=== PATIENT | female | born 1960 | race Caucasian/White ===

== ENCOUNTER 2019-09-07 14:00 | Emergency (ER) | payer OTHER, SELFPAY ==
[2019-09-07 14:14] VITALS: BP 108/54; PULSE 65; RESP 16; TEMP 36.2; O2SAT 100
--- NOTE | 2019-09-07 14:47 | ED.LOWEXIN ---
HPI - Extremity Injury (Lower) General Chief Complaint: Extremity Injury, Lower Stated Complaint: right toe injury Time Seen by Provider: 09/07/19 14:45 Source: patient and RN notes reviewed Mode of arrival: ambulatory Limitations: no limitations History of Present Illness HPI Narrative: 59-year-old female presents with concern for toe injury. Reports she dropped a can of corn on her toe, causing a laceration, pain, swelling. Reports pain, swelling, laceration to the second digit of her right toe. Reports she has been keeping it clean with a dressing on it. MD complaint: other (Toe injury) Injury: Left: foot Related Data Home Medications Medication Instructions Recorded Confirmed adalimumab [Humira(CF) Pen] mg SUBCUT 05/16/19 folic acid 05/16/19 methotrexate sodium 05/16/19 Allergies Allergy/AdvReac Type Severity Reaction Status Date / Time codeine AdvReac Unknown Vomiting Verified 09/07/19 14:04 Review of Systems Review of Systems: Narrative: CONSTITUTIONAL: Denies malaise, chills, sweats, or fever. CARDIOVASCULAR: Denies chest pain, palpitations SKIN: Reports laceration to the dorsal aspect of the second digit of the right foot, not involving nail MUSCULOSKELETAL: Reports toe pain, swelling, bruising secondary to right foot NEUROLOGIC: Denies numbness, weakness, or headache. All systems reviewed & are unremarkable except as noted in HPI and below PMFSH Family History Family History (Updated 10/01/18 @ 07:38 by DOCTOR UNKNOWN) Mother Hypertension Family history of coronary artery disease Grandparent Family history of coronary artery disease Social History Social History Smoking status: Never smoker Alcohol intake: never Gender identity (if verbalized by the patient): Female Comments At time of signature, agree with nursing past medical, surgical, social and family history. There is no relevant family history pertinent to the presenting complaint Exam Narrative: Exam Narrative: GENERAL: Well-appearing, well-nourished, and in no acute distress. HEAD: Normocephalic, atraumatic. EYES: PERRLA, conjunctivae clear NECK: Supple. CHEST: Speaks in full sentences. No respiratory distress. HEART: Regular rate and rhythm. Normal and equal peripheral pulses. EXTREMITIES: Second digit of right foot has normal strength and sensation, normal range of motion. 5/5 strength with digit flexion and extension. Normal sensation with sensitivity to light touch and pain. No skin tenting, no devitalized tissue or atrophy, no trophic changes, no obvious deformity, alignment normal, no point tenderness, nearby joints and structures intact. Distal pulses palpable and equal bilaterally, skin warm, dry, pink. Capillary refill less than 3 seconds. Digit has mild ecchymosis, erythema, edema, mild induration. SKIN: Warm, dry, no rash. 1 cm laceration, edges not approximated noted to the dorsal aspect of the second digit of the right foot, not involving nail. NEURO: Alert and oriented x3. PSYCH: Normal mood and affect Course Course Emergency Course: Patient is aware of diagnosis, understands and agrees to treatment plan. Anticipatory guidance given. Patient agrees to follow-up as directed and is aware of reasons to seek care at the emergency department. Portions of this record may have been created with voice recognition software Vital Signs Vital signs: Vital Signs Temperature 97.2 F L 09/07/19 14:14 Pulse Rate 65 09/07/19 14:14 Respiratory Rate 16 09/07/19 14:14 Blood Pressure 108/54 L 09/07/19 14:14 Pulse Oximetry 100 09/07/19 14:14 Temperature 97.2 F L 09/07/19 14:14 Pulse Rate 65 09/07/19 14:14 Respiratory Rate 16 09/07/19 14:14 Blood Pressure 108/54 L 09/07/19 14:14 Pulse Oximetry 100 09/07/19 14:14 Reviewed. MDM - Extremity Injury (Lower) MDM Narrative Medical decision making narrative: Wound not able to be closed due to approximation of wound edges, age of wound. U
== END 2019-09-07 15:05 | disposition home or self-care (01) ==
PROVIDERS: Emergency Provider Nurse Practitioner; PCP Internal Medicine
DX: S91.114A Laceration without foreign body of right lesser toe(s) without damage to nail, initial encounter (principal); W22.8XXA Striking against or struck by other objects, initial encounter
CPT/HCPCS: 99213; G0463

== ENCOUNTER → 2020-12-01 12:56 | Outpatient (CLI) | payer BC, SELFPAY ==
--- NOTE | ~2020-12-01 | XR_ITS ---
EXAMINATION: HAND-ELAINE ARTHRITIS 3+VIEWS DATE: 12/01/2020 13:43 INDICATION: Arthropathic psoriasis. TECHNIQUE: Posteroanterior, lateral, and oblique views of the left and of the right hands as well as a ballcatchers view of both hands were obtained. COMPARISON: None. FINDINGS: Alignment is normal at the bilateral hands. No fracture. Relatively symmetric polyarticular osteoarth ritis at both hands characterized by nonuniform joint space narrowing and tiny marginal osteophytes, mild to moderate severity at several of the distal interphalangeal joints and mild at the remaining i nterphalangeal joints. No erosions to suggest inflammatory arthritis. Soft tissues are unremarkable. IMPRESSION: 1. 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 Reviewed, dictated and finalized at location A. IMPRESSION: 1. 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
--- NOTE | ~2020-12-01 | XR_ITS ---
EXAMINATION: XR lumbar spine min 4V, XR sacroiliac joints min 3V DATE: 12/01/2020 13:43 INDICATION: Arthropathic psoriasis TECHNIQUE: 1. Anteroposterior, lateral, and bilateral oblique views of the lumbar spine, and cone-down lateral v iew of the lumbosacral junction were obtained. 2. AP and left and right oblique views of the sacroiliac joints were obtained. COMPARISON: None. FINDINGS: Lumbar spine: Alignment is normal. Vertebral body heights are normal. Moderate disc height loss at L4-L5 and mild d isc height loss at L3-L4. No pars interarticularis defects. Multilevel mild bilateral lumbar facet os teoarthritis. Cholecystectomy clips in right upper quadrant. Normal bowel gas pattern. Lung bases are clear. Sacroiliac joints: Mild bilateral sacroiliac osteoarthritis. No erosions to suggest inflammatory sacroiliitis. IMPRESSION: 1. Mild to moderate lower lumbar spondylosis. 2. Mild bilateral sacroiliac osteoarthritis. Reviewed, dictated and finalized at location A. IMPRESSION: 1. Mild to moderate lower lumbar spondylosis. 2. Mild bilateral sacroiliac osteoarthritis.
== END ==
PROVIDERS: PCP Internal Medicine; Visit Provider Internal Medicine
DX: L40.50 Arthropathic psoriasis, unspecified (principal); M19.041 Primary osteoarthritis, right hand; M19.042 Primary osteoarthritis, left hand; M47.896 Other spondylosis, lumbar region; M53.3 Sacrococcygeal disorders, not elsewhere classified
CPT/HCPCS: 72110; 72202; 73130

== ENCOUNTER → 2020-12-13 14:40 | Outpatient (CLI) | payer BC, SELFPAY ==
--- NOTE | ~2020-12-13 | XR_ITS ---
XR sternoclavicular joint BI DATE: 12/13/2020 15:30 INDICATION: Pain TECHNIQUE: AP and bilateral oblique views of the sternoclavicular joints COMPARISON: None FINDINGS: There is diffuse osteopenia. No fracture or dislocation is noted at the sternoclavicular joints. IMPRESSION: Osteopenia Reviewed, dictated and finalized at Location A. Reviewed, dictated and finalized at location A. IMPRESSION: Osteopenia
== END ==
PROVIDERS: PCP Internal Medicine; Visit Provider Internal Medicine
DX: M25.519 Pain in unspecified shoulder (principal); M85.88 Other specified disorders of bone density and structure, other site
CPT/HCPCS: 71130

== ENCOUNTER 2021-01-01 11:38 | Emergency (ER) | payer BC, SELFPAY ==
[2021-01-01 11:51] VITALS: BP 91/42; PULSE 48; RESP 16; TEMP 36.4; O2SAT 98
--- NOTE | 2021-01-01 11:59 | ED.HA ---
HPI - Headache General Chief Complaint: Headache Stated Complaint: olea/vomiting Time Seen by Provider: 01/01/21 11:59 Source: patient and RN notes reviewed Mode of arrival: ambulatory Limitations: no limitations History of Present Illness HPI Narrative: 60-year-old female presents to the [facility] with a typical migraine. Started at 0600 today. Tried her home medication and states she just started vomiting. Denies any trauma to the head. Denies being on blood thinners. Has photo and phono sensitivity. No change in vision. No numbness or tingling in extremities Related Data Home Medications Medication Instructions Recorded Confirmed cholecalciferol (vitamin D3) 125 125 mcg PO DAILY 05/11/20 01/01/21 mcg (5,000 unit) capsule Allergies Allergy/AdvReac Type Severity Reaction Status Date / Time codeine AdvReac Unknown Vomiting Verified 01/01/21 12:21 Review of Systems Review of Systems: All systems reviewed & are unremarkable except as noted in HPI and below Constitutional: Constitutional: Reports no additional constitutional complaints, Denies chills and Denies fever(s) Eyes: Eyes: Reports as per HPI, Denies change in vision and Reports photophobia ENT: Reports system reviewed and no additional complaints, except as documented Cardiovascular: Cardiovascular: Reports no additional cardiovascular complaints and Denies chest pain Respiratory: Respiratory: Reports no additional respiratory complaints and Denies cough Gastrointestinal: Gastrointestinal: Reports as per HPI and Reports nausea Musculoskeletal: Musculoskeletal: Reports no additional musculoskeletal complaints Integumentary/Breasts: Skin/Breast: Reports system reviewed and no additional complaints, except as docu Neurologic: Reports as per HPI, Denies vertigo, Denies dizziness, Denies syncope, Reports headache(s), Denies focal weakness and Denies numbness Psychiatric: Psychiatric: Reports no additional psychiatric complaints Allergic/Immunologic: Allergic/Immunologic: Reports no additional allergic/immunologic complaints PMFSH Past Medical History Medical History Dysuria Herpes HPV test positive Migraines Postmenopausal Psoriatic arthritis Screening for breast cancer Screening for cardiovascular condition Screening for lipid disorders Urinary urgency Vaginal delivery x 2 Surgical History Surgical History History of bilateral tubal ligation Hx of cholecystectomy Hx of unilateral salpingectomy Previous section [place] teeth removed Family History Family History Mother Acute myocardial infarction Cancer Grandparent Family history of coronary artery disease Social History Social History Smoking packs per day: 1 Smoking cigarettes per day: 20.0 Years smoked: 7 Smoking pack-years: 7.00 Smoking status: Former smoker Second hand tobacco smoke exposure: Yes Alcohol intake: never Substance use: never Gender identity (if verbalized by the patient): Female Comments At the time of my signature, I reviewed and agree with the nursing past medical, surgical, social, and family history. There is no relevant family history pertinent to the patient complaint. Exam Const: General: alert and ill appearing acutely (Pain) Nutritional Appearance: well nourished Orientation/consciousness: patient oriented x3 HENMT: Head: normal to inspection Ears: external ears normal, TM's normal bilaterally and EAC's normal Eyes: Conjunctivae: conjunctivae normal Pupils: Equal, round and reactive pupils present Neck: Neck: normal visual inspection, no lymphadenopathy and no meningeal signs Chest: Chest palpation & inspection: normal inspection of the chest Resp: Effort & Inspection: normal respiratory effort Auscultation: c
[2021-01-01] MEDS: KETOROLAC (*BKC) 60 MG/2 ML VIAL IM (12:11)
[2021-01-01] MEDS: ONDANSETRON HCL ODT 4 MG TABLET 8 MG PO (12:11)
[2021-01-01 12:56] VITALS: BP 102/35
== END 2021-01-01 12:56 | disposition home or self-care (01) ==
PROVIDERS: Emergency Provider Nurse Practitioner; PCP Internal Medicine
DX: G43.909 Migraine, unspecified, not intractable, without status migrainosus (principal); Z87.891 Personal history of nicotine dependence
CPT/HCPCS: 96372; 99213; A9270; G0463; J1885

== ENCOUNTER 2021-01-13 08:23 | Emergency (ER) | payer BC, SELFPAY ==
[2021-01-13 08:32] VITALS: BP 90/41; PULSE 53; RESP 16; TEMP 36.3; O2SAT 99
--- NOTE | 2021-01-13 09:06 | ED.HA ---
HPI - Headache General Chief Complaint: Headache Stated Complaint: Migraine Time Seen by Provider: 01/13/21 09:07 Source: patient and RN notes reviewed Mode of arrival: ambulatory Limitations: no limitations History of Present Illness HPI Narrative: 60-year-old female with history of psoriatic arthritis, migraines presents with concern for typical migraine. Started at 3 AM today. Reports she is unable to keep her migraine abortive medicine down, reports 2 episodes of vomiting.. Denies any trauma to the head. Denies being on blood thinners. Has photo and phono sensitivity. No change in vision. No numbness, weakness or tingling in extremities. Patient arrived by private vehicle, drove herself MD elicited complaint: migraine Related Data Home Medications Medication Instructions Recorded Confirmed cholecalciferol (vitamin D3) 125 125 mcg PO DAILY 05/11/20 01/01/21 mcg (5,000 unit) capsule Allergies Allergy/AdvReac Type Severity Reaction Status Date / Time codeine AdvReac Unknown Vomiting Verified 01/13/21 08:38 Review of Systems Review of Systems: CONSTITUTIONAL: Denies malaise, chills, sweats, or fever. EYES: Denies visual changes. Reports photosensitivity ENT: Denies rhinorrhea, congestion, sinus pain, otalgia or sore throat. CARDIOVASCULAR: Denies chest pain, palpitations, or edema. RESPIRATORY: Denies cough or dyspnea. GASTROINTESTINAL: Denies abdominal pain. Reports nausea, vomiting, NEUROLOGIC: Denies numbness, weakness. Reports headache. All systems reviewed & are unremarkable except as noted in HPI and below PMFSH Past Medical History Medical History Dysuria Herpes HPV test positive Migraines Postmenopausal Psoriatic arthritis Screening for breast cancer Screening for cardiovascular condition Screening for lipid disorders Urinary urgency Vaginal delivery x 2 Surgical History Surgical History History of bilateral tubal ligation Hx of cholecystectomy Hx of unilateral salpingectomy Previous section [place] teeth removed Family History Family History Mother Acute myocardial infarction Cancer Grandparent Family history of coronary artery disease Social History Social History Smoking packs per day: 1 Smoking cigarettes per day: 20.0 Years smoked: 7 Smoking pack-years: 7.00 Smoking status: Former smoker Second hand tobacco smoke exposure: Yes Alcohol intake: never Substance use: never Gender identity (if verbalized by the patient): Female Comments At time of signature, agree with nursing past medical, surgical, social and family history. There is no relevant family history pertinent to the presenting complaint Exam Narrative: GENERAL: Well-appearing, well-nourished, and in no acute distress. HEAD: Normocephalic, atraumatic. EYES: PERRLA, sclera clear, and EOMI. No nystagmus. ENT: Mucous membranes moist. TM pearly [place] with sharp light reflex bilaterally; no tragal tenderness. Oropharynx without erythema or lesions. Tonsils not enlarged and without exudate. NECK: Supple. No lymphadenopathy. No jugular venous distension, thyromegaly, or carotid bruits. Carotids were easily palpable bilaterally. CHEST: No respiratory distress. Clear to auscultation. No bony deformities, no asymmetry. Speaks in full sentences. HEART: Regular rate and rhythm. No murmur heard. SKIN: Warm, dry, no visible rash. NEURO: Alert and oriented x3. No focal deficits. Cranial nerves II through XII grossly intact PSYCH: Normal mood and affect Course Course Emergency Course: Patient is aware of diagnosis, understands and agrees to treatment plan. Anticipatory guidance given. Patient agrees to follow-up as directed and is aware of reasons to seek care at the emergency department. [facility]
[2021-01-13] MEDS: KETOROLAC (*BKC) 60 MG/2 ML VIAL IM (09:24)
[2021-01-13] MEDS: ONDANSETRON HCL ODT 4 MG TABLET PO (09:24)
== END 2021-01-13 10:25 | disposition home or self-care (01) ==
PROVIDERS: Emergency Provider Nurse Practitioner; PCP Internal Medicine
DX: G43.919 Migraine, unspecified, intractable, without status migrainosus (principal); Z87.891 Personal history of nicotine dependence; L40.50 Arthropathic psoriasis, unspecified
CPT/HCPCS: 96372; 99213; A9270; G0463; J1885

== ENCOUNTER 2021-02-06 08:18 | Emergency (ER) | payer BC, SELFPAY ==
[2021-02-06 08:27] VITALS: BP 86/45; PULSE 57; RESP 16; TEMP 36.5; O2SAT 99
[2021-02-06 08:28] VITALS: BP 86/45; PULSE 57; RESP 16; TEMP 36.5; O2SAT 99
--- NOTE | 2021-02-06 08:28 | ED.HA ---
HPI - Headache General Chief Complaint: Headache Stated Complaint: Migraine Time Seen by Provider: 02/06/21 08:28 Source: patient, RN notes reviewed and old records reviewed Mode of arrival: ambulatory Limitations: no limitations History of Present Illness HPI Narrative: 60-year-old presents to the [facility] with complaints of a typical migraine. Patient states that it started approximately 2 or 3 this morning. States that her at home medication is not working anymore. Has been seen twice before in the last month for the same situation. Is photo and phono sensitivity. No neurologic deficits noted on exam. Patient reports nausea with vomiting. MD elicited complaint: migraine Related Data Home Medications Medication Instructions Recorded Confirmed cholecalciferol (vitamin D3) 125 125 mcg PO DAILY 05/11/20 02/06/21 mcg (5,000 unit) capsule Allergies Allergy/AdvReac Type Severity Reaction Status Date / Time codeine AdvReac Unknown Vomiting Verified 02/06/21 08:27 Review of Systems Review of Systems: All systems reviewed & are unremarkable except as noted in HPI and below Constitutional: Constitutional: Reports no additional constitutional complaints, Denies chills and Denies fever(s) Eyes: Eyes: Reports as per HPI and Reports photophobia ENT: Reports system reviewed and no additional complaints, except as documented Cardiovascular: Cardiovascular: Reports no additional cardiovascular complaints and Denies chest pain Respiratory: Respiratory: Reports no additional respiratory complaints, Denies cough and Denies dyspnea Gastrointestinal: Gastrointestinal: Reports as per HPI, Denies abdominal pain, Denies diarrhea, Reports nausea and Reports vomiting Genitourinary: Genitourinary: Reports no additional female genitourinary complaints Musculoskeletal: Musculoskeletal: Reports no additional musculoskeletal complaints Integumentary/Breasts: Skin/Breast: Reports system reviewed and no additional complaints, except as docu Neurologic: Reports as per HPI, Denies confusion, Denies vertigo, Denies dizziness, Reports headache(s), Denies focal weakness, Denies numbness and Denies weakness Psychiatric: Psychiatric: Reports no additional psychiatric complaints Allergic/Immunologic: Allergic/Immunologic: Reports no additional allergic/immunologic complaints PMFSH Past Medical History Medical History Dysuria Herpes HPV test positive Migraines Postmenopausal Psoriatic arthritis Screening for breast cancer Screening for cardiovascular condition Screening for lipid disorders Urinary urgency Vaginal delivery x 2 Surgical History Surgical History History of bilateral tubal ligation Hx of cholecystectomy Hx of unilateral salpingectomy Previous section [place] teeth removed Family History Family History Mother Acute myocardial infarction Cancer Grandparent Family history of coronary artery disease Social History Social History Smoking packs per day: 1 Smoking cigarettes per day: 20.0 Years smoked: 7 Smoking pack-years: 7.00 Smoking status: Former smoker Second hand tobacco smoke exposure: Yes Alcohol intake: never Substance use: never Gender identity (if verbalized by the patient): Female Comments At the time of my signature, I reviewed and agree with the nursing past medical, surgical, social, and family history. There is no relevant family history pertinent to the patient complaint. Exam Const: General: alert and uncomfortable; No ill appearing Nutritional Appearance: well nourished and thin Orientation/consciousness: patient oriented x3 Limitations: no limitations HENMT: Head: normal to inspection Ears: external ears normal, TM's normal bilaterally and EAC's normal Eye
[2021-02-06] MEDS: KETOROLAC (*BKC) 60 MG/2 ML VIAL IM (08:40)
[2021-02-06] MEDS: ONDANSETRON HCL ODT 4 MG TABLET 8 MG PO (08:41)
[2021-02-06 09:15] VITALS: BP 110/62
== END 2021-02-06 09:52 | disposition home or self-care (01) ==
PROVIDERS: Emergency Provider Nurse Practitioner; PCP Internal Medicine
DX: G43.909 Migraine, unspecified, not intractable, without status migrainosus (principal); Z87.891 Personal history of nicotine dependence
CPT/HCPCS: 96372; 99213; A9270; G0463; J1885

== ENCOUNTER → 2021-02-28 10:31 | Outpatient (CLI) | payer BC, SELFPAY ==
--- NOTE | ~2021-02-28 | XR_ITS ---
EXAMINATION: XR sacrum coccyx min 2V INDICATION: Sacrococcygeal disorders, not elsewhere classified TECHNIQUE: Three views of the sacrum and coccyx are obtained. COMPARISON: 12/01/2020 FINDINGS: Bone alignment is normal. There is no fracture. There is no abnormal sclerosis or erosion o f the sacroiliac joints. Mild sacroiliac osteoarthritis noted. Soft tissues are unremarkable. IMPRESSION: 1. No acute osseous abnormality. Reviewed, dictated and finalized at location B. 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
--- NOTE | ~2021-02-28 | XR_ITS ---
EXAMINATION: XR lumbar spine 2-3V DATE: 02/28/2021 11:10 INDICATION: Dorsalgia, unspecified TECHNIQUE: Anteroposterior and lateral views of the lumbar spine, and cone-down lateral view of the l umbosacral junction were obtained. COMPARISON: 12/01/2020 FINDINGS: There are 2 mm of stable anterolisthesis of L3 on L4 and L4 on L5. The vertebral body heigh ts are maintained. There is no fracture. There is unchanged mild loss of intervertebral disc space he ight at L4-5. Lumbar dextrocurvature is noted. Cholecystectomy clips are noted. IMPRESSION: 1. Mild lumbar spondylosis without acute findings or significant interval change. Reviewed, dictated and finalized at location B. 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 Mild lumbar spondylosis without acute findings or significant interval parisa galvez
== END ==
PROVIDERS: PCP Internal Medicine; Visit Provider Internal Medicine
DX: M53.3 Sacrococcygeal disorders, not elsewhere classified (principal); M47.896 Other spondylosis, lumbar region
CPT/HCPCS: 72100; 72220

== ENCOUNTER 2021-04-14 09:02 | Emergency (ER) | payer BC, SELFPAY ==
[2021-04-14 09:09] VITALS: BP 96/45; PULSE 57; RESP 16; TEMP 36.1; O2SAT 98
--- NOTE | 2021-04-14 09:34 | ED.HA ---
HPI - Headache General Chief Complaint: Headache Stated Complaint: migraine Time Seen by Provider: 04/14/21 09:15 Source: patient and RN notes reviewed Mode of arrival: ambulatory Limitations: no limitations History of Present Illness HPI Narrative: Patient presents today complaining of a migraine since 430 this morning. It is located in the right temporal and parietal area. Associated symptoms include nausea and vomiting x3, photophobia, phonophobia. Denies vision changes, dizziness, lightheadedness, numbness or tingling in the extremities. Patient has tried a few migraine medications prescribed by her PCP and a neurologist, but they did not work. She normally takes 50 mg of Benadryl prior to going to bed, which helps prevent her migraines, but she forgot to take it last night. She took some Tylenol and suppository form at 530 this morning without relief. She currently rates her pain 9/10. This is not her worst headache of her life. Symptoms are similar to previous migraines. MD elicited complaint: migraine Related Data Home Medications Medication Instructions Recorded Confirmed cholecalciferol (vitamin D3) 125 125 mcg PO DAILY 05/11/20 04/14/21 mcg (5,000 unit) capsule ixekizumab [Taltz Autoinjector] 80 mg SUBCUT MONTHLY 04/14/21 04/14/21 methotrexate sodium 2.5 mg PO DAILY 04/14/21 04/14/21 Allergies Allergy/AdvReac Type Severity Reaction Status Date / Time codeine AdvReac Unknown Vomiting Verified 04/14/21 09:22 Review of Systems Review of Systems: CONSTITUTIONAL: Denies body aches, fever, chills, or sweats. EYES: Denies visual changes, redness, or discharge.+ Photophobia ENT: Denies rhinorrhea, congestion, sore throat, or otalgia.+ Phonophobia CARDIOVASCULAR: Denies chest pain, palpitations, or edema. RESPIRATORY: Denies cough or dyspnea. GASTROINTESTINAL: Denies abdominal pain, or diarrhea.+ Nausea and vomiting GENITOURINARY: Denies dysuria or hematuria. SKIN: Denies rash, itching, or wounds. MUSCULOSKELETAL: Denies back pain, joint pain, or myalgia. NEUROLOGIC: Denies numbness, tingling, or weakness.+ Migraine PSYCH: Denies depression or anxiety. [facility] Past Medical History Medical History Dysuria Herpes HPV test positive Migraines Postmenopausal Psoriatic arthritis Screening for breast cancer Screening for cardiovascular condition Screening for lipid disorders Urinary urgency Vaginal delivery x 2 Surgical History Surgical History History of bilateral tubal ligation Hx of cholecystectomy Hx of unilateral salpingectomy Previous section [place] teeth removed Family History Family History Mother Acute myocardial infarction Cancer Grandparent Family history of coronary artery disease Social History Social History Smoking packs per day: 1 Smoking cigarettes per day: 20.0 Years smoked: 7 Smoking pack-years: 7.00 Smoking status: Former smoker Second hand tobacco smoke exposure: Yes Alcohol intake: never Substance use: never Substance use type: does not use Gender identity (if verbalized by the patient): Female Comments At time of signature, I have reviewed and agree with nursing past medical, surgical, social and family history unless otherwise noted. Please see nursing chart for further information. There is no relevant family history pertinent to the presenting complaint Exam Narrative: GENERAL: Well-appearing, well-nourished, and in no acute distress. Lying in a darkened room. HEAD: Normocephalic, atraumatic. EYES: EOMI. PERRL. No redness or drainage. Conjunctivae normal. ENT: Mucous membranes pink and moist. Nares clear. No rhinorrhea. TMs normal bilaterally. Throat normal. Uvula midline. NECK: Normal
[2021-04-14] MEDS: ONDANSETRON HCL ODT 4 MG TABLET 8 MG SUBLINGUAL (09:42)
[2021-04-14] MEDS: diphenhydrAMINE HCl INJ 50 MG/ML VIAL IM (09:44)
[2021-04-14] MEDS: KETOROLAC (*BKC) 60 MG/2 ML VIAL IM (09:44)
== END 2021-04-14 10:15 | disposition home or self-care (01) ==
PROVIDERS: Emergency Provider Nurse Practitioner; PCP Internal Medicine
DX: G43.909 Migraine, unspecified, not intractable, without status migrainosus (principal); Z87.891 Personal history of nicotine dependence; L40.50 Arthropathic psoriasis, unspecified
CPT/HCPCS: 96372; 99214; A9270; G0463; J1200; J1885

== ENCOUNTER → 2021-07-17 12:03 | Outpatient (CLI) | payer BC, SELFPAY ==
--- NOTE | ~2021-07-17 | US_ITS ---
EXAMINATION: US soft tissue LE RT EXAM DATE: 07/17/2021 12:25 INDICATION: M79.651 - Pain in right thigh . States symptoms intermittent for 3 months, with palpable lumps. States injects thigh with Taltz medicine. TECHNIQUE: Multiple grayscale and Doppler images of the symptomatic right thigh region were obtained (by a technologist who performed the scan) and subsequently reviewed. There is no prior study for co mparison. FINDINGS: There are scattered small hyperechoic regions within the subcutaneous fat, could be small regions of granulation given the history provided. These are all subcentimeter in size. Some cause mild shadowin g. The greater saphenous vein was imaged at the thigh level and there is no superficial thrombophlebi tis. No subcutaneous mass. The musculature images unremarkable. IMPRESSION: Scattered slightly hyperechoic subcutaneous fat regions probably injection granulomas. Reviewed, dictated and finalized at location B. IMPRESSION: Scattered slightly hyperechoic subcutaneous fat regions probably in jection granulomas.
== END ==
PROVIDERS: PCP Internal Medicine; Visit Provider Internal Medicine
DX: M79.651 Pain in right thigh (principal)
CPT/HCPCS: 76882

== ENCOUNTER → 2021-08-14 12:37 | Outpatient (CLI) | payer BC, SELFPAY ==
--- NOTE | ~2021-08-14 | US_ITS ---
EXAMINATION: US venous doppler LE RT DATE: 08/14/2021 13:07 INDICATION: Right lower limb pain. TECHNIQUE: Grayscale ultrasound images without and with compression and Doppler ultrasound images of the right lower extremity veins were obtained. COMPARISON: None. FINDINGS: The visualized portions of right common femoral vein, profunda (deep) femoral vein, femoral vein, pop liteal vein, peroneal veins, posterior tibial veins, and greater saphenous vein outflow are patent. IMPRESSION: 1. No deep venous thrombosis. Reviewed, dictated and finalized at location A.
== END ==
PROVIDERS: PCP Internal Medicine; Visit Provider Internal Medicine
DX: M79.606 Pain in leg, unspecified (principal)
CPT/HCPCS: 93971

== ENCOUNTER 2021-12-14 15:05 | Emergency (ER) | payer BC, SELFPAY ==
[2021-12-14 15:14] VITALS: BP 118/41; PULSE 66; RESP 18; TEMP 36.1; O2SAT 99
--- NOTE | 2021-12-14 15:16 | ED.FEMALEGU ---
HPI - Female Genitourinary General Chief complaint: Urogenital-Female Stated complaint: blood in urine Time Seen by Provider: 12/14/21 15:16 Source: patient Mode of arrival: ambulatory Limitations: no limitations History of Present Illness HPI Narrative: Ms. Corey is a 61-year-old female patient presenting to the clinic today with complaints of hematuria, bladder pain, dysuria x1 day. She reports her symptoms began yesterday with some sharp bladder pain. She reports she noted some blood in her urine this morning and she went over to [place] and the symptoms had gotten worse. She denies any fever or chills. She denies any back pain but does have some bladder pain with burning on urination Related Data Home Medications Medication Instructions Recorded Confirmed cholecalciferol (vitamin D3) 125 125 mcg PO DAILY 05/11/20 08/08/21 mcg (5,000 unit) capsule multivitamin with iron 1 tablet PO DAILY 06/20/21 08/08/21 Allergies Allergy/AdvReac Type Severity Reaction Status Date / Time codeine AdvReac Unknown Vomiting Verified 12/14/21 15:42 Review of Systems Review of Systems: Pertinent positives per HPI. Patient denies any fever, chills, rash, headache, visual changes, dizziness, cough, runny nose, sore throat, shortness of breath, chest pain, palpitations, nausea, vomiting, diarrhea, constipation, PMFSH Past Medical History Medical History Dysuria Herpes HPV test positive Migraines Postmenopausal Psoriatic arthritis Screening for breast cancer Screening for cardiovascular condition Screening for lipid disorders Urinary urgency Vaginal delivery x 2 Surgical History Surgical History History of bilateral tubal ligation Hx of cholecystectomy Hx of unilateral salpingectomy Previous section [place] teeth removed Family History Family History Mother Acute myocardial infarction Cancer Grandparent Family history of coronary artery disease Social History Social History Smoking packs per day: 1 Smoking cigarettes per day: 20.0 Years smoked: 7 Smoking pack-years: 7.00 Smoking status: Never smoker Second hand tobacco smoke exposure: Yes Alcohol intake: never Substance use: never Substance use type: does not use Gender identity (if verbalized by the patient): Female Comments At the time of my signature, I reviewed and agree with the nursing past medical, surgical, social, and family history. There is no relevant family history pertinent to the patient complaint. Exam Narrative: General: Well-developed, well nourished, in no apparent distress. Head: Normocephalic, atraumatic. Cardio: Regular rate and rhythm, s1 and s2 normal, no murmur appreciated. Resp: Clear to auscultation bilaterally, no rhonchi, rales, wheezing or rubs. Abdomen: Soft, pliable, bowel sounds present in all quadrants, tender to palpation over the suprapubic bladder, no organomegly, no CVAT tenderness. Course Course Emergency Course: Portions of this record may have been created with voice recognition software. Level of Care: Express Care Visit Vital Signs Vital signs: Vital Signs Temperature 36.1 C L 12/14/21 15:14 Pulse Rate 66 12/14/21 15:14 Respiratory Rate 18 12/14/21 15:14 Blood Pressure 118/41 L 12/14/21 15:14 Pulse Oximetry 99 12/14/21 15:14 Oxygen Delivery Room Air 12/14/21 15:14 Temperature 36.1 C L 12/14/21 15:14 Pulse Rate 66 12/14/21 15:14 Respiratory Rate 18 12/14/21 15:14 Blood Pressure 118/41 L 12/14/21 15:14 Pulse Oximetry 99 12/14/21 15:14 Oxygen Delivery Room Air 12/14/21 15:14 Vital signs reviewed MDM - Female Genitourinary MDM Narrative Medical decision making narrative: At the time
== END 2021-12-14 15:43 | disposition home or self-care (01) ==
PROVIDERS: Emergency Provider Nurse Practitioner Family; PCP Internal Medicine
DX: N39.0 Urinary tract infection, site not specified (principal)
CPT/HCPCS: 81003; 87077; 87086; 87186; 99213; G0463

== ENCOUNTER 2021-12-24 09:55 | Emergency (ER) | payer BC, SELFPAY ==
--- NOTE | 2021-12-24 09:59 | ED.HA ---
HPI - Headache General Chief Complaint: Headache Stated Complaint: Headache,Vomitting Time Seen by Provider: 12/24/21 10:29 Source: patient, RN notes reviewed and old records reviewed Mode of arrival: ambulatory Limitations: no limitations History of Present Illness HPI Narrative: 61-year-old female presents to the [facility] with complaints of a headache that started early this morning. Has a history of migraines. Patient states it feels similar to her migraines on top of her head. Denies any blurry vision or change in vision. She is photosensitive. Denies any injuries. Reports that she took a Tylenol suppository. Denies any numbness or tingling. States that she is nauseous without vomiting. denies any chest pain or abdominal pain Drove self to the [facility] Related Data Home Medications Medication Instructions Recorded Confirmed cholecalciferol (vitamin D3) 125 125 mcg PO DAILY 05/11/20 12/24/21 mcg (5,000 unit) capsule multivitamin with iron 1 tablet PO DAILY 06/20/21 12/24/21 Allergies Allergy/AdvReac Type Severity Reaction Status Date / Time codeine AdvReac Unknown Vomiting Verified 12/24/21 10:08 Review of Systems Review of Systems: All systems reviewed & are unremarkable except as noted in HPI and below Constitutional: Constitutional: Reports no additional constitutional complaints, Denies chills and Denies fever(s) Eyes: Eyes: Reports no additional eye complaints ENT: Reports system reviewed and no additional complaints, except as documented Cardiovascular: Cardiovascular: Reports no additional cardiovascular complaints Respiratory: Respiratory: Reports no additional respiratory complaints Gastrointestinal: Gastrointestinal: Reports no additional gastrointestinal complaints Musculoskeletal: Musculoskeletal: Reports no additional musculoskeletal complaints Integumentary/Breasts: Skin/Breast: Reports system reviewed and no additional complaints, except as docu Neurologic: Reports as per HPI, Reports headache(s), Denies focal weakness, Denies numbness and Denies weakness Psychiatric: Psychiatric: Reports no additional psychiatric complaints Allergic/Immunologic: Allergic/Immunologic: Reports no additional allergic/immunologic complaints PMFSH Past Medical History Medical History Dysuria Herpes HPV test positive Migraines Postmenopausal Psoriatic arthritis Screening for breast cancer Screening for cardiovascular condition Screening for lipid disorders Urinary urgency Vaginal delivery x 2 Surgical History Surgical History History of bilateral tubal ligation Hx of cholecystectomy Hx of unilateral salpingectomy Previous section [place] teeth removed Family History Family History Mother Acute myocardial infarction Cancer Grandparent Family history of coronary artery disease Social History Social History Smoking packs per day: 1 Smoking cigarettes per day: 20.0 Years smoked: 7 Smoking pack-years: 7.00 Smoking status: Never smoker Second hand tobacco smoke exposure: Yes Alcohol intake: never Substance use: never Substance use type: does not use Gender identity (if verbalized by the patient): Female Comments At the time of my signature, I reviewed and agree with the nursing past medical, surgical, social, and family history. There is no relevant family history pertinent to the patient complaint. Exam Const: General: healthy appearing, no acute distress and alert Nutritional Appearance: well nourished Orientation/consciousness: patient oriented x3 Limitations: no limitations HENMT: Head: normal to inspection Ears: external ears normal, TM's normal bilaterally and EAC's normal General nose exam: Normal external nose p
[2021-12-24 10:05] VITALS: BP 103/52; PULSE 56; RESP 18; TEMP 36.1; O2SAT 100
[2021-12-24] MEDS: KETOROLAC (*BKC) 60 MG/2 ML VIAL IM (10:47)
[2021-12-24] MEDS: ONDANSETRON HCL ODT 4 MG TABLET 8 MG SUBLINGUAL (10:48)
== END 2021-12-24 11:19 | disposition home or self-care (01) ==
PROVIDERS: Emergency Provider Nurse Practitioner; PCP Internal Medicine
DX: R51.9 Headache, unspecified (principal)
CPT/HCPCS: 96372; 99213; A9270; G0463; J1885

== ENCOUNTER 2022-04-23 15:21 | Emergency (ER) | payer BC, SELFPAY ==
[2022-04-23 16:50] VITALS: BP 112/79; PULSE 67; RESP 16; TEMP 36.4; O2SAT 99
--- NOTE | 2022-04-23 16:57 | ED.URI ---
HPI - URI/Sore Throat General Chief Complaint: Upper Respiratory Infection Stated Complaint: Sore Throat/Fever/Bodyaches Time Seen by Provider: 04/23/22 16:58 Source: patient, RN notes reviewed and old records reviewed Mode of arrival: ambulatory Limitations: no limitations History of Present Illness HPI Narrative: 62-year-old female presents to the [facility] with complaints of sore throat, fever, body aches. Reports feeling feverish but did not take her temperature 2 nights ago. States she has taken every [id number] medication. Related Data Home Medications Medication Instructions Recorded Confirmed cholecalciferol (vitamin D3) 125 125 mcg PO DAILY 05/11/20 04/23/22 mcg (5,000 unit) capsule multivitamin with iron 1 tablet PO DAILY 06/20/21 04/23/22 Allergies Allergy/AdvReac Type Severity Reaction Status Date / Time codeine AdvReac Unknown Vomiting Verified 04/23/22 16:45 Review of Systems Review of Systems: All systems reviewed & are unremarkable except as noted in HPI and below Constitutional: Constitutional: Reports no additional constitutional complaints Eyes: Eyes: Reports no additional eye complaints ENT: Reports nasal congestion and Reports sore throat Cardiovascular: Cardiovascular: Reports no additional cardiovascular complaints, Denies chest pain and Denies dyspnea Respiratory: Respiratory: Reports no additional respiratory complaints, Denies chest congestion, Denies cough and Denies dyspnea Gastrointestinal: Gastrointestinal: Reports no additional gastrointestinal complaints, Denies abdominal pain, Denies nausea and Denies vomiting Musculoskeletal: Musculoskeletal: Reports no additional musculoskeletal complaints Integumentary/Breasts: Skin/Breast: Reports system reviewed and no additional complaints, except as docu Neurologic: Reports system reviewed and no additional complaints, except as documented Psychiatric: Psychiatric: Reports no additional psychiatric complaints Allergic/Immunologic: Allergic/Immunologic: Reports no additional allergic/immunologic complaints PMFSH Past Medical History Medical History Dysuria Herpes HPV test positive Migraines Muscle cramp Postmenopausal Psoriatic arthritis Screening for breast cancer Screening for cardiovascular condition Screening for lipid disorders Urinary urgency Vaginal delivery x 2 Surgical History Surgical History History of bilateral tubal ligation Hx of cholecystectomy Hx of unilateral salpingectomy Previous section [place] teeth removed Family History Family History Mother Acute myocardial infarction Cancer Grandparent Family history of coronary artery disease Social History Social History Smoking packs per day: 1 Smoking cigarettes per day: 20.0 Years smoked: 7 Smoking pack-years: 7.00 Smoking status: Never smoker Second hand tobacco smoke exposure: Yes Alcohol intake: never Substance use: never Substance use type: does not use Gender identity (if verbalized by the patient): Female Comments At the time of my signature, I reviewed and agree with the nursing past medical, surgical, social, and family history. There is no relevant family history pertinent to the patient complaint. Exam Const: General: cooperative, healthy appearing, comfortable, no acute distress, well developed, alert and well nourished Nutritional Appearance: well nourished Orientation/consciousness: patient oriented x3 Limitations: no limitations HENMT: Head: normal to inspection Ears: hearing grossly normal bilaterally and external ears normal Face/Nose/Sinus: Normal external nose present, Normal nares present, Normal nasal mucous membranes and turbinates present and normal facial exam Fa
== END 2022-04-23 17:31 | disposition home or self-care (01) ==
PROVIDERS: Emergency Provider Nurse Practitioner; PCP Internal Medicine
DX: J06.9 Acute upper respiratory infection, unspecified (principal); Z20.822 Contact with and (suspected) exposure to COVID-19; F17.210 Nicotine dependence, cigarettes, uncomplicated
CPT/HCPCS: 87081; 87426; 87804; 87880; 99213; C9803; G0463

== ENCOUNTER 2022-06-17 12:10 | Emergency (ER) | payer BC, SELFPAY | END 2022-06-17 13:03 | disposition left against medical advice (07) | PROVIDERS: Emergency Provider Internal Medicine Hematology & Oncology; PCP Internal Medicine | DX: Z53.21 Procedure and treatment not carried out due to patient leaving prior to being seen by health care provider (principal) | CPT/HCPCS: 99199 ==

== ENCOUNTER 2022-12-25 08:05 | Emergency (ER) | payer BC, SELFPAY ==
--- NOTE | 2022-12-25 08:10 | ED.GENADULT ---
HPI - General Adult General Chief complaint: Headache Stated complaint: migraine Time Seen by Provider: 12/25/22 08:17 Source: patient, RN notes reviewed and old records reviewed Mode of arrival: ambulatory Limitations: no limitations History of Present Illness HPI narrative: 62-year-old female presents to the [facility] with complaints of a migraine. Has history of psoriatic arthritis and migraine headaches. Symptoms started at 4:45 a.m. this morning. States that she took her rizatriptan but threw it up Reports that it is her typical migraine Patient is photo sensitive, phono sensitive Reports nausea and vomiting. Related Data Home Medications Medication Instructions Recorded Confirmed cholecalciferol (vitamin D3) 125 125 mcg PO DAILY 05/11/20 12/25/22 mcg (5,000 unit) capsule multivitamin with iron 1 tablet PO DAILY 06/20/21 12/25/22 rimegepant 75 mg disintegrating 75 mg PO ONCE PRN Migraine Headache 11/21/22 12/25/22 tablet (Nurtec ODT) Allergies Allergy/AdvReac Type Severity Reaction Status Date / Time codeine AdvReac Unknown Vomiting Verified 12/25/22 08:09 Review of Systems Review of Systems: All systems reviewed & are unremarkable except as noted in HPI and below Constitutional: Constitutional: Reports as per HPI and Reports headache(s) Eyes: Eyes: Reports no additional eye complaints ENT: Reports system reviewed and no additional complaints, except as documented Cardiovascular: Cardiovascular: Reports no additional cardiovascular complaints, Denies chest pain and Denies dyspnea Respiratory: Respiratory: Reports no additional respiratory complaints, Denies chest congestion, Denies cough and Denies dyspnea Gastrointestinal: Gastrointestinal: Reports no additional gastrointestinal complaints, Denies abdominal pain, Denies nausea and Denies vomiting Musculoskeletal: Musculoskeletal: Reports no additional musculoskeletal complaints Integumentary/Breasts: Skin/Breast: Reports system reviewed and no additional complaints, except as docu Neurologic: Reports as per HPI, Denies dizziness, Reports headache(s) and Denies numbness Psychiatric: Psychiatric: Reports no additional psychiatric complaints Allergic/Immunologic: Allergic/Immunologic: Reports no additional allergic/immunologic complaints PMFSH Past Medical History Medical History Dysuria Herpes HPV test positive Migraines Muscle cramp Postmenopausal Psoriatic arthritis Screening for breast cancer Screening for cardiovascular condition Screening for lipid disorders Trigeminal neuralgia of right side of face Urinary urgency Vaginal delivery x 2 Surgical History Surgical History History of bilateral tubal ligation Hx of cholecystectomy Hx of unilateral salpingectomy Previous section [place] teeth removed Family History Family History Mother Acute myocardial infarction Cancer Grandparent Family history of coronary artery disease Social History Social History Smoking packs per day: 1 Smoking cigarettes per day: 20.0 Years smoked: 7 Smoking pack-years: 7.00 Smoking status: Never smoker Second hand tobacco smoke exposure: Yes Alcohol intake: never Substance use: never Substance use type: does not use Lack of Transportation: No Lack of Food: Never True Current Housing: I Have Housing Concerned About Future Housing: No Difficulty Paying Gas/Electric Bills: No Difficulty Paying for Meds: No Currently Unemployed: No Education: Associate Degree Difficulty w/ Childcare or Family Care: No Living arrangements: with family Occupation/Education: occupation Gender identity (if verbalized by the patient): Female Comments At the time of my signature, I reviewed and
[2022-12-25 08:15] VITALS: BP 111/48; PULSE 54; RESP 16; TEMP 36; O2SAT 99
[2022-12-25] MEDS: ONDANSETRON HCL ODT 4 MG TABLET SUBLINGUAL (08:30)
[2022-12-25] MEDS: KETOROLAC (*BKC) 60 MG/2 ML VIAL IM (08:33)
== END 2022-12-25 09:03 | disposition home or self-care (01) ==
PROVIDERS: Emergency Provider Nurse Practitioner; PCP Family Medicine
DX: G43.909 Migraine, unspecified, not intractable, without status migrainosus (principal); F17.210 Nicotine dependence, cigarettes, uncomplicated; L40.50 Arthropathic psoriasis, unspecified
CPT/HCPCS: 96372; 99213; A9270; G0463; J1885

== ENCOUNTER 2023-05-14 09:40 | Emergency (ER) | payer BC, SELFPAY ==
--- NOTE | 2023-05-14 10:02 | ED.FEMALEGU ---
HPI - Female Genitourinary General Chief complaint: Urogenital-Female Stated complaint: urinary issue Time Seen by Provider: 05/14/23 10:02 Source: patient Mode of arrival: ambulatory Limitations: no limitations History of Present Illness HPI Narrative: Mag is a 63-year-old female patient presenting to the clinic today with complaints of possible urinary tract infection. She reports she is having some left lower abdominal discomfort that started 2 days ago. States that it is a sharp pain. Reports that azo does help the pain. States that normally when she has this pain she has a urinary tract infection. Last dose of azo was last night- midnight. She denies any back pain, fever, or chills. Last bowel movement was this morning and normal for the patient. No blood in her stool. No history of ovarian cyst or diverticulitis Related Data Home Medications Medication Instructions Recorded Confirmed cholecalciferol (vitamin D3) 125 125 mcg PO DAILY 05/11/20 05/14/23 mcg (5,000 unit) capsule multivitamin with iron 1 tablet PO DAILY 06/20/21 05/14/23 Allergies Allergy/AdvReac Type Severity Reaction Status Date / Time codeine AdvReac Unknown Vomiting Verified 03/26/23 13:12 Review of Systems Review of Systems: Pertinent positives per HPI. Patient denies any fever, chills, rash, headache, visual changes, dizziness, cough, runny nose, sore throat, shortness of breath, chest pain, palpitations, nausea, vomiting, diarrhea, constipation issues. PMFSH Past Medical History Medical History Dysuria Herpes HPV test positive Migraines Muscle cramp Postmenopausal Psoriatic arthritis Screening for breast cancer Screening for cardiovascular condition Screening for lipid disorders Trigeminal neuralgia of right side of face Urinary urgency Vaginal delivery x 2 Surgical History Surgical History History of bilateral tubal ligation Hx of cholecystectomy Hx of unilateral salpingectomy Previous section [place] teeth removed Family History Family History Mother Acute myocardial infarction Cancer Grandparent Family history of coronary artery disease Social History Social History Smoking packs per day: 1 Smoking cigarettes per day: 20.0 Years smoked: 7 Smoking pack-years: 7.00 Smoking status: Former smoker Second hand tobacco smoke exposure: Yes Alcohol intake: never Substance use: never Substance use type: does not use Lack of Transportation: No Lack of Food: Never True Current Housing: I Have Housing Concerned About Future Housing: No Difficulty Paying Gas/Electric Bills: No Difficulty Paying for Meds: No Currently Unemployed: No Education: Associate Degree Difficulty w/ Childcare or Family Care: No Living arrangements: with family Occupation/Education: occupation Gender identity (if verbalized by the patient): Female Comments At the time of my signature, I reviewed and agree with the nursing past medical, surgical, social, and family history. There is no relevant family history pertinent to the patient complaint. Exam Narrative: General: Well-developed, well nourished, in no apparent distress. Head: Normocephalic, atraumatic. Cardio: Regular rate and rhythm, s1 and s2 normal, no murmur appreciated. Resp: Clear to auscultation bilaterally, no rhonchi, rales, wheezing or rubs. Abdomen: Soft, pliable, bowel sounds present in all quadrants, mild tender to palpation over the left lower quadrant, no organomegly, no CVAT tenderness. Course Course Emergency Course: Portions of this record may have been created with voice recognition software. Level of Care: Express Care Visit Vital Signs Vital signs: Vital Signs
[2023-05-14 10:19] VITALS: BP 120/53; PULSE 51; RESP 16; TEMP 36.9; O2SAT 99
[2023-05-14 10:48] LABS: Glucose Point of Care 95 mg/dl (65-105)
== END 2023-05-14 11:00 | disposition home or self-care (01) ==
PROVIDERS: Emergency Provider Nurse Practitioner Family; PCP Family Medicine
DX: N30.00 Acute cystitis without hematuria (principal); R10.32 Left lower quadrant pain; Z87.891 Personal history of nicotine dependence
CPT/HCPCS: 81003; 82948; 87086; 99213; G0463

== ENCOUNTER 2023-07-11 15:04 | Emergency (ER) | payer BC, SELFPAY ==
--- NOTE | 2023-07-11 15:08 | ED.FEMALEGU ---
HPI - Female Genitourinary General Chief complaint: Urogenital-Female Stated complaint: UTI Time Seen by Provider: 07/11/23 15:07 Source: patient Mode of arrival: ambulatory Limitations: no limitations History of Present Illness HPI Narrative: Patient is a 63-year-old female who presents with 1 day of urgency and frequency. Reports intermittent bladder spasms. Has been taking azo with little relief. Denies any fever, chills, nausea, vomiting, diarrhea MD elicited complaint: dysuria Related Data Home Medications Medication Instructions Recorded Confirmed cholecalciferol (vitamin D3) 125 125 mcg PO DAILY 05/11/20 07/11/23 mcg (5,000 unit) capsule multivitamin with iron 1 tablet PO DAILY 06/20/21 07/11/23 Allergies Allergy/AdvReac Type Severity Reaction Status Date / Time codeine AdvReac Unknown Vomiting Verified 07/11/23 15:06 Review of Systems Review of Systems: All systems reviewed & are unremarkable except as noted in HPI and below Constitutional: Constitutional: Denies chills, Denies fever(s), Denies headache(s), Denies malaise and Denies weakness Eyes: Eyes: Denies change in vision, Denies eye discharge and Denies irritation ENT: Denies otalgia, Denies headache(s), Denies nasal congestion, Denies nasal discharge, Denies sinus pain and Denies sore throat Cardiovascular: Cardiovascular: Denies chest pain, Denies edema, Denies palpitations and Denies dyspnea Respiratory: Respiratory: Denies cough and Denies dyspnea Gastrointestinal: Gastrointestinal: Denies abdominal pain, Denies diarrhea, Denies nausea and Denies vomiting Genitourinary: Genitourinary: Denies hematuria, Reports nocturia, Denies dysuria, Denies flank pain and Reports urinary urgency Musculoskeletal: Musculoskeletal: Denies back pain and Denies numbness Integumentary/Breasts: Skin/Breast: Denies pruritus and Denies rash Neurologic: Denies headache(s), Denies numbness and Denies weakness Psychiatric: Psychiatric: Reports no additional psychiatric complaints Endocrine: Endocrine: Denies palpitations PMFSH Past Medical History Medical History Dysuria Herpes HPV test positive Migraines Muscle cramp Postmenopausal Psoriatic arthritis Screening for breast cancer Screening for cardiovascular condition Screening for lipid disorders Trigeminal neuralgia of right side of face Urinary urgency Vaginal delivery x 2 Surgical History Surgical History History of bilateral tubal ligation Hx of cholecystectomy Hx of unilateral salpingectomy Previous section [place] teeth removed Family History Family History Mother Acute myocardial infarction Cancer Grandparent Family history of coronary artery disease Social History Social History Smoking packs per day: 1 Smoking cigarettes per day: 20.0 Years smoked: 7 Smoking pack-years: 7.00 Smoking status: Current every day smoker Second hand tobacco smoke exposure: Yes Alcohol intake: never Substance use: never Substance use type: does not use Lack of Transportation: No Lack of Food: Never True Current Housing: I Have Housing Concerned About Future Housing: No Difficulty Paying Gas/Electric Bills: No Difficulty Paying for Meds: No Currently Unemployed: No Education: Associate Degree Difficulty w/ Childcare or Family Care: No Living arrangements: with family Occupation/Education: occupation Gender identity (if verbalized by the patient): Female Comments At time of signature, agree with nursing past medical, surgical, social and family history. There is no relevant family history pertinent to the presenting complaint. Exam Const: General: cooperative, healthy appearing, comfortable, no acute distress and well black
[2023-07-11 15:31] VITALS: BP 100/40; PULSE 60; RESP 16; TEMP 36.8; O2SAT 100
== END 2023-07-11 16:20 | disposition home or self-care (01) ==
PROVIDERS: Emergency Provider Nurse Practitioner Family; PCP Nurse Practitioner Family
DX: N30.00 Acute cystitis without hematuria (principal); F17.210 Nicotine dependence, cigarettes, uncomplicated; L40.50 Arthropathic psoriasis, unspecified
CPT/HCPCS: 81003; 87086; 87088; 99213; G0463

== ENCOUNTER 2023-12-16 15:04 | Outpatient (CLI) | payer BC, SELFPAY ==
--- NOTE | ~2023-12-16 | CT_ITS ---
EXAMINATION: CT brain wo con DATE: 12/16/2023 15:25 INDICATION: Migraine, unspecified, not intractable. TECHNIQUE: Computed tomography (CT) of the head was performed without intravenous contrast. The mA wa s adjusted according to patient size. Iterative reconstruction technique was employed. The dose-lengt h product was 605.33 mGy-cm. COMPARISON: Brain MRI 07/29/2013 FINDINGS: There is no intracranial hemorrhage, acute infarction, or abnormal intracranial mass lesion . The ventricles are normal in size. The orbits are normal. There is mucosal thickening in the parana roxana sinuses. The mastoid air cells are normal. IMPRESSION: 1. Normal brain. Reviewed, dictated and finalized at location A. IMPRESSION: 1. Normal brain.
== END 2023-12-16 15:05 | disposition home or self-care (01) ==
LOC: ANHIMG 15:04
PROVIDERS: PCP Nurse Practitioner Family; Visit Provider Psychiatry & Neurology Neurology
DX: G43.909 Migraine, unspecified, not intractable, without status migrainosus (principal)
CPT/HCPCS: 70450

== ENCOUNTER 2024-04-08 11:36 | Emergency (ER) | payer MEDICARE, OTHER, SELFPAY ==
--- NOTE | ~2024-04-08 | XR_ITS ---
Clinical Indication: Cough PA and lateral views of the chest: Comparison: None Findings: The lungs are clear, without evidence of focal consolidation or pleural effusion. Cardiome diastinal silhouette is within normal limits. Bones and soft tissues are unremarkable. Impression: Normal chest. Reviewed, dictated and finalized at [facility]. D RADIO TECHNICIAN Impression: Normal chest.
[2024-04-08 11:55] VITALS: BP 105/41; PULSE 61; RESP 14; TEMP 37; O2SAT 100
--- NOTE | 2024-04-08 12:02 | ED.URI ---
HPI - URI/Sore Throat General Chief Complaint: Upper Respiratory Infection Stated Complaint: cough,bodyaches, walking pneumonia 3wks ago Time Seen by Provider: 04/08/24 12:02 Source: patient Mode of arrival: ambulatory Limitations: no limitations History of Present Illness HPI Narrative: 64 yo F presents with c/o cough, nasal congestion, fatigue, bodyaches and chills for 3 days. Was seen by PCP 03/24 and told she had walking pneumonia, took zpak and states she never really felt better. Did not have chest x-ray. Pt states her was really sick and thinks she picked something up from him. All systems reviewed and negative except as noted above. Related Data Allergies Allergy/AdvReac Type Severity Reaction Status Date / Time codeine AdvReac Unknown Vomiting Verified 04/08/24 11:55 Review of Systems Review of Systems: CONSTITUTIONAL: Denies fever, chills, or sweats. reports fatigue. EYES: Denies visual changes, redness, or discharge. ENT: reports rhinorrhea, congestion, sore throat. Denies otalgia. CARDIOVASCULAR: Denies chest pain, palpitations, or edema. RESPIRATORY: Reports cough. Denies dyspnea. GASTROINTESTINAL: Denies abdominal pain, nausea, vomiting, or diarrhea. GENITOURINARY: Denies dysuria or hematuria. SKIN: Denies rash or itching. MUSCULOSKELETAL: Denies back pain, joint pain, or myalgia. NEUROLOGIC: Denies headache, numbness, or weakness. PSYCHIATRIC: Denies anxiety or depression. All other systems reviewed are negative, except as documented in HPI. COUNT INCLUDES THE [facility] Past Medical History Medical History Dysuria Herpes HPV test positive Migraines Muscle cramp Postmenopausal Psoriatic arthritis Screening for breast cancer Screening for cardiovascular condition Screening for lipid disorders Trigeminal neuralgia of right side of face Urinary urgency Vaginal delivery x 2 Surgical History Surgical History History of bilateral tubal ligation Hx of cholecystectomy Hx of unilateral salpingectomy Previous section [place] teeth removed Family History Family History Mother Acute myocardial infarction Cancer Grandparent Family history of coronary artery disease Social History Social History Smoking packs per day: 1 Smoking cigarettes per day: 20.0 Years smoked: 7 Smoking pack-years: 7.00 Smoking status: Former smoker Second hand tobacco smoke exposure: Yes Alcohol intake: never Substance use: never Substance use type: does not use Do You Feel Safe in your Home?: Yes Lack of Transportation: No Lack of Food: Never True Current Housing: I Have Housing Concerned About Future Housing: No Difficulty Paying Gas/Electric Bills: No Difficulty Paying for Meds: No Currently Unemployed: No Education: Associate Degree Difficulty w/ Childcare or Family Care: No Living arrangements: with family Occupation/Education: occupation Gender identity (if verbalized by the patient): Female Sexual Orientation (if Verbalized by the Patient): Straight or Heterosexual Spiritual care concerns: No Agree to blood products: Yes Comments At time of signature, agree with nursing past medical, surgical, social and family history. There is no relevant family history pertinent to the presenting complaint. Exam Narrative: GENERAL: This is a well-nourished, well-developed patient, in no apparent distress. HEAD: normocephalic, atraumatic. EYES: PERRL. Sclera clear/white. Vision is grossly intact. EARS: External ears normal, auditory canals clear and without drainage, TMs normal without perforation. Hearing grossly intact. NOSE: External nose normal with no obvious nasal discharge, nares without redness, no rhinorrhea. THROAT: Mucous membranes moist, posterior pharynx clear. NECK: Neck supple, non-tender without lymphadenopathy, masses or thyromegaly. CARDIOVASCULAR: Regular rate and rhythm without murmurs, gallops, or rubs. RESPIRATORY: Decreased to bilateral lower lung [place] otherwise clear. Breath sounds equal bilaterally. No wheezes, rales, or rhonchi. SKIN: warm, Dry, intact with no suspicious lesions or rash, good texture and turgor. NEURO: awake, alert, and oriented to person, place and time. There were no obvious focal neurologic abnormalities. EXTREMITIES: No joint tenderness, effusion, or edema noted. Course Course Level of Care: Express Care Visit Vital Signs Vital signs: Vital Signs Temperature 37.0 C 04/08/24 11:55 Pulse Rate 61 04/08/24 11:55 Respiratory Rate 14 04/08/24 11:55 Blood Pressure 105/41 L 04/08/24 11:55 Pulse Oximetry 100 04/08/24 11:55 Temperature 37.0 C 04/08/24 11:55 Pulse Rate 61 04/08/24 11:55 Respiratory Rate 14 04/08/24 11:55 Blood Pressure 105/41 L 04/08/24 11:55 Pulse Oximetry 100 04/08/24 11:55 Reviewed MDM - URI/Sore Throat MDM Narrative Medical decision making narrative: chest x-ray normal. Positive for COVID-19. Will prescribe antiviral. Patient is well-appearing, nontoxic. Patient is aware of diagnosis, understands and agrees to treatment plan. Anticipatory guidance given. Patient agrees to follow-up as directed and is aware of reasons to seek care at the emergency department. Portions of this record may have been created with voice recognition software Lab Data Labs: Lab Results 04/08/24 Range/Units 12:08 POC Influenza A Ag Negative (Negative) POC Influenza B Ag Negative (Negative) POC SARS CoV-2 Ag Positive (Negative) Discharge Plan Discharge Clinical Impression: COVID-19 Patient Disposition: Home, Self-Care Condition: Stable Instructions: COVID-19 (Coronavirus Disease 2019) (ED) Additional Instructions: your chest x-ray was normal today. You were positive for COVID. COVID is a virus and symptoms may last 10-14 days. Take antiviral as prescribed. Taking tckw-tfc-lexilwy medication to treat her symptoms such as DayQuil NyQuil cold and flu. Drink at least 64 oz of water a day. Follow-up your primary care physician if symptoms are not improving. Patient Language: Belizean Prescriptions: New Paxlovid 300 mg (150 mg x 2)-100 mg tablets,dose pack See Rx Instructions .ROUTE .COMPLEX Qty: 30 0RF Rx Instructions: take TWO 150 mg tablets of nirmatrelvir with ONE 100 mg tablet of ritonavir twice daily for 5 days Follow-up/Referrals: Mima Manzano APRN [Primary Care Provider] - Time of Disposition: 12:37
[2024-04-08 13:00] LABS: EDCOVIDSCREEN Positive (Negative); EDINFLUASCREEN Negative (Negative); EDINFLUBSCREEN Negative (Negative)
== END 2024-04-08 12:43 | disposition home or self-care (01) ==
PROVIDERS: Emergency Provider Nurse Practitioner Family; PCP Nurse Practitioner Family
DX: U07.1 COVID-19 (principal); Z87.891 Personal history of nicotine dependence
CPT/HCPCS: 71046; 87426; 87804; 99213; G0463

== ENCOUNTER 2024-12-22 05:51 | Emergency (ER) | payer MEDICARE, OTHER, SELFPAY ==
--- OUTSIDE RECORDS SUMMARY | 2024-12-22 05:54 | XMS_ITS | Clinical Summary ---
Author Organization [facility] Address [address] [place] [address] Care Team Providers Care Toby Maker Name Role Phone Jacobo Shaikh DO Primary Care Provider [phone] Allergies Active Allergy Reactions Criticality Noted Date Comments Codeine Nausea & Vomiting Low 06/17/2022 Medications carBAMazepine (TEGretol) 200 mg tablet Take 1 tablet (200 mg total) by mouth 2 (two) times a day 60 tablet 06/17/2022 Active Medical History Medical History Date Comments Psoriatic arthritis (HCC) Migraines Social History Tobacco Use Types Packs/Day Years Used Date Smoking Tobacco: Never Assessed Personal Safety Answer Date Recorded Getting School Help Needed Denies 04/28 Comments Unknown Sex and Gender Information Value Date Recorded Sex Assigned at Not on file Legal Sex Female 4:38 PM DIRECTOR [employer] Gender Identity Not on file Sexual Orientation Not on file Obstetrics History Last Filed Vital Signs Vital Sign Reading Time Taken Comments Blood Pressure 112/58 06/17/2022 8:48 PM DIRECTOR [employer] Pulse 76 06/17/2022 8:48 PM [employer] Temperature 36.7 C (98 F) 06/17/2022 4:46 PM [employer] Respiratory Rate 18 06/17/2022 8:48 PM [employer]OR [employer] Oxygen Saturation 100% 06/17/2022 8:48 PM [employer] Inhaled Oxygen Concentration - - Weight 60.3 kg (133 lb) 06/17/2022 4:46 PM [employer] Height 167.6 cm (5' 6) 06/17/2022 4:46 PM [employer] Body Mass Index 21.47 06/17/2022 4:46 PM [employer] Plan of Treatment Health Maintenance Due Date Last Done Comments Breast Cancer Screening-Mammogram 1959 Cervical Cancer Screening 1959 Colon Cancer Screening-Colonoscopy 1959 Depression Screening 1959 Fall Risk Assessment 1959 Hepatitis C Screening 1959 Osteoporosis Screening-Bone Density Scan 1959 DTaP/Tdap/Td Vaccine (1 - Tdap) 1970 Hepatitis B Screening 1977 Pneumococcal vaccine 65+ (1 of 1 - PCV) 2009 Zoster Vaccine (1 of 2) 2009 Well Visit 65+ 2024 Influenza Vaccine (#1) 2024 Insurance CHOICE PRF PPO [place] Care Teams Toby Maker Relationship Specialty Start Date End Date Jacobo Shaikh DO PCP - General Internal Medicine 06/17/22
[2024-12-22 06:04] VITALS: BP 139/68; PULSE 55; RESP 23; TEMP 37; O2SAT 100
--- NOTE | 2024-12-22 06:30 | ED.GENADULT ---
HPI - General Adult General Chief complaint: Nausea/Vomiting/Diarrhea <Rex Greer MD - Last Filed: 12/22/24 06:31> Stated complaint: vomiting <Rex Greer MD - Last Filed: 12/22/24 06:31> Time Seen by Provider: 12/22/24 06:20 <Rex Greer MD - Last Filed: 12/22/24 06:31> History of Present Illness HPI narrative: Patient is 64-year-old female who presents emergency department chief complaint of headache nausea vomiting. Patient reports that she had some dental work done and then subsequently started having severe pain in her teeth the patient reports that her dentist started her on tramadol patient reports he started having nausea and vomiting and reports that she has history of migraines started having headache. The patient reports he has been able to keep anything down <Rex Greer MD - Last Filed: 12/22/24 06:31> Related Data Home medications: Home Medications ?Medication ?Instructions ?Recorded ?Confirmed ?Last Taken ?Type methotrexate (PF) 12.5 mg/0.25 mL 12.5 mg subcut WEEKLY 09/29/24 09/29/24 Unknown History subcutaneous auto-injector <Rex Greer MD - Last Filed: 12/22/24 06:31> Allergies/adverse reactions: Allergies Allergy/AdvReac Type Severity Reaction Status Date / Time codeine AdvReac Unknown Vomiting Verified 11/02/24 14:03 <Rex Greer MD - Last Filed: 12/22/24 06:31> Review of Systems Review of Systems: A 10 system review of systems was completed on the patient and is negative except for what is stated in the HPI. Nursing and ancillary documentation was reviewed. <Rex Greer MD - Last Filed: 12/22/24 06:31> [facility] Past Medical History Medical History: Medical History Trigeminal neuralgia of right side of face Muscle cramp Herpes HPV test positive Vaginal delivery x 2 Migraines Urinary urgency Dysuria Screening for breast cancer Postmenopausal Screening for lipid disorders Screening for cardiovascular condition Psoriatic arthritis <Rex Greer MD - Last Filed: 12/22/24 06:31> Surgical History Surgical History: Surgical History Hx of unilateral salpingectomy [place] teeth removed History of bilateral tubal ligation Previous section Hx of cholecystectomy <Rex Greer MD - Last Filed: 12/22/24 06:31> Family History Family History: Family History Mother Acute myocardial infarction Cancer Grandparent Family history of coronary artery disease <Rex Greer MD - Last Filed: 12/22/24 06:31> Social History Social History: Social History Smoking packs per day: 1 Smoking cigarettes per day: 20.0 Years smoked: 7 Smoking pack-years: 7.00 Smoking status: Former smoker Second hand tobacco smoke exposure: Yes Alcohol intake: never Substance use: never Substance use type: does not use Do You Feel Safe in your Home?: Yes Lack of Transportation: No Lack of Food: Never True Current Housing: I Have Housing Concerned About Future Housing: No Difficulty Paying Gas/Electric Bills: No Difficulty Paying for Meds: No Currently Unemployed: No Education: Associate Degree Difficulty w/ Childcare or Family Care: No Living arrangements: with family Occupation/Education: occupation Gender identity (if verbalized by the patient): Female Sexual Orientation (if Verbalized by the Patient): Straight or Heterosexual Spiritual care concerns: No Agree to blood products: Yes <Rex Gerer MD - Last Filed: 12/22/24 06:31> Course Course Emergency Course: GENERAL: Well-appearing, well-nourished, and in no acute distress. HEAD: Normocephalic, atraumatic. EYES: PERRLA and EOMI. ENT: Nares clear, no rhinorrhea or epistaxis. Mucous membranes moist. NECK: Supple. CHEST: Clear to auscultation. No respiratory distress. HEART: Regular rate and rhythm. No murmur heard. Normal peripheral pulses. ABDOMEN: Soft, nontender, nondistended, normal active bowel sounds. EXTREMITIES: Normal range of motion. No edema. SKIN: Warm, dry, no rash. NEURO: No focal deficits. Alert and oriented x3. PSYCH: Normal mood and affect. <Rex Greer MD - Last Filed: 12/22/24 06:31> Reevaluation(s) Date: 12/22/24 <Tanner Healy MD - Last Filed: 12/22/24 09:24> Reevaluation #2: I assumed care of this patient at shift change with pending labs and disposition. Re-examined the patient she is comfortably resting still has mild headache but her nausea resolved. I did inform her and her about her lab work. She does feel comfortable going home after gets some relief with the headache. I did order IV morphine. <Tanner Healy MD - Last Filed: 12/22/24 09:24> Vital Signs Vital signs: Vital Signs Temperature 37.0 C 12/22/24 06:04 Pulse Rate 55 L 12/22/24 06:04 Respiratory Rate 23 H 12/22/24 06:04 Blood Pressure 139/68 12/22/24 06:04 Pulse Oximetry 100 12/22/24 06:04 Oxygen Delivery Room Air 12/22/24 06:04 Temperature 36.8 C 12/22/24 08:42 Pulse Rate 61 12/22/24 08:42 Respiratory Rate 20 12/22/24 08:42 Blood Pressure 127/58 L 12/22/24 08:42 Pulse Oximetry 100 12/22/24 07:53 Oxygen Delivery Room Air 12/22/24 06:04 <Rex Greer MD - Last Filed: 12/22/24 06:31> Vital Signs Temperature 37.0 C 12/22/24 06:04 Pulse Rate 55 L 12/22/24 06:04 Respiratory Rate 23 H 12/22/24 06:04 Blood Pressure 139/68 12/22/24 06:04 Pulse Oximetry 100 12/22/24 06:04 Oxygen Delivery Room Air 12/22/24 06:04 Temperature 36.8 C 12/22/24 08:42 Pulse Rate 61 12/22/24 08:42 Respiratory Rate 20 12/22/24 08:42 Blood Pressure 127/58 L 12/22/24 08:42 Pulse Oximetry 100 12/22/24 07:53 Oxygen Delivery Room Air 12/22/24 06:04 <Tanner Healy MD - Last Filed: 12/22/24 09:24> Medical Decision Making Vital Signs Vital Signs: Vital Signs Temperature 37.0 C 12/22/24 06:04 Pulse Rate 55 L 12/22/24 06:04 Respiratory Rate 23 H 12/22/24 06:04 Blood Pressure 139/68 12/22/24 06:04 Pulse Oximetry 100 12/22/24 06:04 Oxygen Delivery Room Air 12/22/24 06:04 Temperature 36.8 C 12/22/24 08:42 Pulse Rate 61 12/22/24 08:42 Respiratory Rate 20 12/22/24 08:42 Blood Pressure 127/58 L 12/22/24 08:42 Pulse Oximetry 100 12/22/24 07:53 Oxygen Delivery Room Air 12/22/24 06:04 <Rex Greer MD - Last Filed: 12/22/24 06:31> Vital Signs Temperature 37.0 C 12/22/24 06:04 Pulse Rate 55 L 12/22/24 06:04 Respiratory Rate 23 H 12/22/24 06:04 Blood Pressure 139/68 12/22/24 06:04 Pulse Oximetry 100 12/22/24 06:04 Oxygen Delivery Room Air 12/22/24 06:04 Temperature 36.8 C 12/22/24 08:42 Pulse Rate 61 12/22/24 08:42 Respiratory Rate 20 12/22/24 08:42 Blood Pressure 127/58 L 12/22/24 08:42 Pulse Oximetry 100 12/22/24 07:53 Oxygen Delivery Room Air 12/22/24 06:04 <Tanner Healy MD - Last Filed: 12/22/24 09:24> Lab Data Result diagrams: 12/22/24 06:41 12/22/24 06:41 <Rex Greer MD - Last Filed: 12/22/24 06:31> Labs: Lab Results 12/22/24 12/22/24 Range/Units 06:41 07:52 WBC 13.4 H (4.5-10.0) K/mm3 RBC 4.42 (4.2-5.4) M/mm3 Hgb 12.9 (12.0-15.0) g/dL Hct 39.5 (37.0-47.0) % MCV 89.4 (80-100) fl MCH 29.2 (26-34) pg MCHC 32.7 (32-36) g/dl RDW 12.8 (11.5-14.5) % Plt Count 211 (150-375) k/mm3 MPV 9.9 (7.4-10.4) fl Immature Gran % (Auto) 0.6 H (0-0.5) % Neut % (Auto) 77.8 H (45.5-73.1) % Lymph % (Auto) 13.1 L (18.3-44.2) % [place] % (Auto) 4.7 (2.6-8.5) % Eos % (Auto) 3.4 (0-4.4) % Baso % (Auto) 0.4 (0.2-1.2) % Lymph # (Auto) 1.75 (0.9-3.2) K/mm3 [place] # (Auto) 0.6 (0.1-0.6) K/mm3 Eos # (Auto) 0.5 H (0-0.3) K/mm3 Baso # (Auto) 0.1 (0.0-0.1) K/mm3 Abs Immat Gran (auto) 0.08 H (0.00-0.031) K/mm3 Absolute Neuts (auto) 10.4 H (1.3-6.7) K/mm3 Absolute Nucleated RBC 0.000 (0.0-0.012) K/mm3 Nucleated RBC % 0.0 (0.0-0.2) % Sodium 141 (137-145) mmol/L Potassium 4.0 (3.4-5.0) mmol/L Chloride 104 (98-107) mmol/L Carbon Dioxide 30 (22-30) mmol/L Anion Gap 7 (4-12) mmol/L BUN 21 H (7-17) mg/dL Creatinine 0.78 (0.7-1.0) mg/dL Estim Creat Clear Calc 58 ml/min Estimated GFR > 60 (59 - ) Glucose 155 H (65-110) mg/dL Calcium 10.0 (8.4-10.2) mg/dL Total Bilirubin 0.4 (0.2-1.3) mg/dL AST 40 H (14-36) U/L ALT 28 (6-35) U/L Alkaline Phosphatase 57 (38-126) U/L Total Protein 8.2 (6.3-8.2) g/dL Albumin 4.3 (3.5-5.1) g/dL Lipase 54 (23-300) U/L Urine Color Yellow (Yellow) Urine Appearance Clear (Clear) Urine pH 5.0 (5.0-9.0) Ur Specific [employer] 1.015 (1.001-1.035) Urine Protein Trace (Negative) mg/dL Urine Glucose (UA) Negative (Negative) mg/dL Urine Ketones Negative (Negative) mg/dL Ur Blood (Man) Negative (Negative) Urine Nitrate Negative (Negative) Urine Bilirubin Negative (Negative) Urine Urobilinogen 0.2 (<2.0) mg/dL Leukocyte Esterase Rfl Negative (Negative) SUSHMA/UL Urine RBC 0-2 (0-2) /hpf Urine WBC 0-5 (0-3) /hpf Ur Squamous Epith Cells Occasional (Few) /hpf Urine Bacteria None seen /hpf Urine Casts 3-5 <Rex Greer MD - Last Filed: 12/22/24 06:31> Lab Results 12/22/24 12/22/24 Range/Units 06:41 07:52 WBC 13.4 H (4.5-10.0) K/mm3 RBC 4.42 (4.2-5.4) M/mm3 Hgb 12.9 (12.0-15.0) g/dL Hct 39.5 (37.0-47.0) % MCV 89.4 (80-100) fl MCH 29.2 (26-34) pg MCHC 32.7 (32-36) g/dl RDW 12.8 (11.5-14.5) % Plt Count 211 (150-375) k/mm3 MPV 9.9 (7.4-10.4) fl Immature Gran % (Auto) 0.6 H (0-0.5) % Neut % (Auto) 77.8 H (45.5-73.1) % Lymph % (Auto) 13.1 L (18.3-44.2) % [place] % (Auto) 4.7 (2.6-8.5) % Eos % (Auto) 3.4 (0-4.4) % Baso % (Auto) 0.4 (0.2-1.2) % Lymph # (Auto) 1.75 (0.9-3.2) K/mm3 [place] # (Auto) 0.6 (0.1-0.6) K/mm3 Eos # (Auto) 0.5 H (0-0.3) K/mm3 Baso # (Auto) 0.1 (0.0-0.1) K/mm3 Abs Immat Gran (auto) 0.08 H (0.00-0.031) K/mm3 Absolute Neuts (auto) 10.4 H (1.3-6.7) K/mm3 Absolute Nucleated RBC 0.000 (0.0-0.012) K/mm3 Nucleated RBC % 0.0 (0.0-0.2) % Sodium 141 (137-145) mmol/L Potassium 4.0 (3.4-5.0) mmol/L Chloride 104 (98-107) mmol/L Carbon Dioxide 30 (22-30) mmol/L Anion Gap 7 (4-12) mmol/L BUN 21 H (7-17) mg/dL Creatinine 0.78 (0.7-1.0) mg/dL Estim Creat Clear Calc 58 ml/min Estimated GFR > 60 (59 - ) Glucose 155 H (65-110) mg/dL Calcium 10.0 (8.4-10.2) mg/dL Total Bilirubin 0.4 (0.2-1.3) mg/dL AST 40 H (14-36) U/L ALT 28 (6-35) U/L Alkaline Phosphatase 57 (38-126) U/L Total Protein 8.2 (6.3-8.2) g/dL Albumin 4.3 (3.5-5.1) g/dL Lipase 54 (23-300) U/L Urine Color Yellow (Yellow) Urine Appearance Clear (Clear) Urine pH 5.0 (5.0-9.0) Ur Specific [employer] 1.015 (1.001-1.035) Urine Protein Trace (Negative) mg/dL Urine Glucose (UA) Negative (Negative) mg/dL Urine Ketones Negative (Negative) mg/dL Ur Blood (Man) Negative (Negative) Urine Nitrate Negative (Negative) Urine Bilirubin Negative (Negative) Urine Urobilinogen 0.2 (<2.0) mg/dL Leukocyte Esterase Rfl Negative (Negative) SUSHMA/UL Urine RBC 0-2 (0-2) /hpf Urine WBC 0-5 (0-3) /hpf Ur Squamous Epith Cells Occasional (Few) /hpf Urine Bacteria None seen /hpf Urine Casts 3-5 <Tanner Healy MD - Last Filed: 12/22/24 09:24> Discharge Plan Discharge Clinical Impression: Migraines Qualifiers: Migraine type: unspecified Status migrainosus presence: without status migrainosus Intractability: intractable Qualified Code(s): G43.919 - Migraine, unspecified, intractable, without status migrainosus <Rex Greer MD - Last Filed: 12/22/24 06:31> Patient Disposition: Home <Rex Greer MD - Last Filed: 12/22/24 06:31> Condition: Stable <Rex Greer MD - Last Filed: 12/22/24 06:31> Instructions: Migraine Headache (ED) <Rex Greer MD - Last Filed: 12/22/24 06:31> Additional Instructions: continue home medications, follow with your doctor <Rex Greer MD - Last Filed: 12/22/24 06:31> Patient Language: Icelandic <Rex Greer MD - Last Filed: 12/22/24 06:31> Prescriptions: No Action methotrexate (PF) 12.5 mg/0.25 mL auto-injector 12.5 mg subcut WEEKLY ondansetron 4 mg tablet,disintegrating 4 mg PO Q8H PRN (Reason: nausea and vomiting) Qty: 14 2RF rizatriptan [Maxalt-DORR OPERATOR] 10 mg tablet,disintegrating See Rx Instructions PO .COMPLEX Qty: 14 6RF Rx Instructions: take 1 tab at onset of headache; if no relief may repeat 1 tab after at least 2 hrs; max = 3 tabs/24 hr PO sertraline [Zoloft] 50 mg tablet 50 mg PO DAILY Qty: 90 2RF naproxen 500 mg tablet 500 mg PO BID PRN (Reason: pain) Qty: 60 2RF tizanidine 2 mg tablet 2 mg PO TID PRN (Reason: muscle spasticity) Qty: 30 0RF <Rex Greer MD - Last Filed: 12/22/24 06:31> Follow-up/Referrals: Mima Manzano MANAGER OF APPLICATIONS DEVELOPMENT [Primary Care Provider, Internal Medicine] <Rex Greer MD - Last Filed: 12/22/24 06:31> Time of Disposition: 09:24 <Rex Greer MD - Last Filed: 12/22/24 06:31> 09:24 <Tanner Healy MD - Last Filed: 12/22/24 09:24>
--- OUTSIDE RECORDS SUMMARY | 2024-12-22 06:34 | XMS_ITS | Clinical Summary ---
Author Organization [facility] Address [address] [place] [address] Care Team Providers Care Post Office Manager Name Role Phone Jacobo Shaikh DO Primary Care Provider [phone] Allergies Active Allergy Reactions Criticality Noted Date [...] on file Legal Sex Female 4:38 PM PUBLIC SERVICE REPRESENTATIVE Gender Identity Not on file Sexual Orientation Not on file Obstetrics History Last Filed Vital Signs Vital Sign Reading Time Taken Comments Blood Pressure 112/58 06/17/2022 8:48 PM PUBLIC SERVICE REPRESENTATIVE Pulse 76 06/17/2022 8:48 PM PUBLIC SERVICE REPRESENTATIVE Temperature 36.7 C (98 F) 06/17/2022 4:46 PM PUBLIC SERVICE REPRESENTATIVE Respiratory Rate 18 06/17/2022 8:48 PM PUBLIC SERVICE REPRESENTATIVE Oxygen Saturation 100% 06/17/2022 8:48 PM PUBLIC SERVICE REPRESENTATIVE Inhaled Oxygen Concentration - - Weight 60.3 kg (133 lb) 06/17/2022 4:46 PM PUBLIC SERVICE REPRESENTATIVE Height 167.6 cm (5' 6) 06/17/2022 4:46 PM PUBLIC SERVICE REPRESENTATIVE Body Mass Index 21.47 06/17/2022 4:46 PM PUBLIC SERVICE REPRESENTATIVE Plan of Treatment Health Maintenance Due Date [...] Insurance CHOICE PRF PPO [place] Care Teams Post Office Manager Relationship Specialty Start Date End Date Jacobo Shaikh DO PCP - General Internal Medicine 06/17/22
--- OUTSIDE RECORDS SUMMARY | 2024-12-22 06:34 | XMS_ITS | Clinical Summary ---
Author Organization [facility] Address [address] [place] [address] Care Team Providers Care Herpetology Teacher Name Role Phone Unavailable Primary Care Provider Unavailabl e Source Comments [facility],non-owned Affiliates and Associated Physician Practices is amultiple site organization consisting of ambulatory clinics and hospital sitesin [place], [place], [place] and [place]. This disclosure is being madepursuant to the Care Everywhere program and may not contain all information available regarding this patient. Last updated 18.[facility] Allergies Active Allergy Reactions Criticality Noted Date Comments Codeine Nausea and/or Vomiting 10/22/2016 Medications * Be aware that medications may not be up to date on this document. Alwaysverify current medications with the patient. METHOTREXATE PO Acti ve multivitamin daily (THERAGRAN) tablet Take 1 tablet by mouth daily with food Active ixekizumab (TALTZ) 80 MG/ML auto-injector pen Inject 80 mg subcutaneously every 28 days Active albuterol HFA (PROVENTIL;VENT FRANKLYN;PROAIR) 108 (90 Base) MCG/ACT inhalerIndicati ons:Acute bronchitis, unspecified organism Inhale 2 (two) puffs by mouth every 6 hours as needed for Wheezing or Cough 1 Inhaler 11/03/19 21 Active Active Problems No known active problems Family History Medical History Relation Name Comments CAD (Coronary Artery Disease) Mother Cancer - Other Mother Relation Name Status Comments Mother Social History Tobacco Use Types Packs/Day Years Used Date Smoking Tobacco: Never Smokeless Tobacco: Never Comments Unknown Sex and Gender Information Value Date Recorded Sex Assigned at Not on file Legal Sex Female 1:45 PM CDT Gender Identity Not on file Sexual Orientation Not on file Last Filed Vital Signs Vital Sign Reading Time Taken Comments Blood Pressure 98/62 11/02/2020 2:51 PM CDT Pulse 78 11/02/2020 2:51 PM CDT Temperature 36.7 C (98.1 F) 11/02/2020 2:51 PM CDT Respiratory Rate 17 11/02/2020 2:51 PM CDT Oxygen Saturation 96% 11/02/2020 2:51 PM CDT Inhaled Oxygen Concentration - - Weight 61.2 kg (135 lb) 11/02/2020 2:51 PM CDT Height 167.6 cm (5' 6) 11/02/2020 2:51 PM CDT Body Mass Index 21.79 11/02/2020 2:51 PM CDT Plan of Treatment Health Maintenance Due Date Last Done Comments BONE DENSITY TESTING 1959 COLOGUARD (AGES 45-75) - COL ON CA SCREENING 1959 COLON MONITORING 1959 COLONOSCOPY - COLON CA SCREENING 1959 CT COLONOGRAPHY - COLON CA SCREENING 1959 Colorectal Cancer Screening 1959 FIT - COLON CA SCREENING 1959 FLEX SIG - COLON CA SCREENING 1959 LIPID TESTING 1959 MAMMOGRAM 1959 HIV SCREENING 1974 HEPATITIS C SCREENING 03/10/1977 DTAP/TDAP/TD VACCINES (1 - Tdap) 1978 PNEUMOCOCCAL VACCINE 50+ (1 of 1 - PCV) 2009 ZOSTER VACCINE (1 of 2) 2009 COVID-19 VACCINE (3 - 2023-2 5 season) 2023 09/20/2020, 08/30/2020 DEPRESSION SCREENING 04/22/2024 INFLUENZA VACCINE (#1) 2024 0, 01/30/2014 Respiratory Syncytial Virus (RSV) Vaccine Pt: or over 60 yrs (1 - 1-dose 75+ series) 2034 HEPATITIS B VACCINE Aged Out No longe r eligible based on patient's age to complete this topic HIB VACCINE Aged Out No longer eligi ble based on patient's age to complete this topic HPV VACCINE Aged Out No longer eligi ble based on patient's age to complete this topic MENINGOCOCCAL (Group B) VACCINE SHARED DECISION-MAKING Aged Out No longer eligible based on patient's age to complete this topic MENINGOCOCCAL GROUPS A/C/Y/W VACCINE Aged Out No longer eligible b ased on patient's age to complete this topic Insurance [facility]
[2024-12-22] MEDS: SODIUM CHLORIDE 0.9% IV 1,000 ML 999 ML IV CONT (06:38)
[2024-12-22] MEDS: KETOROLAC 15 MG/ML VIAL (*BKC) IV PUSH (06:39)
[2024-12-22] MEDS: PROCHLORPERAZINE EDISYLATE 10 MG/2 ML VIAL IV PUSH (06:40)
[2024-12-22 06:48] LABS: Hematocrit 39.5 % (37.0-47.0); Hemoglobin 12.9 g/dL (12.0-15.0); Immature Granulocyte Percent A 0.6 % (0-0.5); Lymphocytes Absolute Auto 1.75 K/mm3 (0.9-3.2); Mean Corpuscular HGB Conc 32.7 g/dl (32-36); Mean Corpuscular Hemoglobin 29.2 pg (26-34); Mean Corpuscular Volume 89.4 fl (80-100); Nucleated Red Blood Cells Absolute Auto 0.000 K/mm3 (0.0-0.012); Nucleated Red Blood Cells Perc 0.0 % (0.0-0.2); Platelet Count Result 211 k/mm3 (150-375); Red Blood Count 4.42 M/mm3 (4.2-5.4); White Blood Count 13.4 K/mm3 (4.5-10.0)
[2024-12-22 06:57] LABS: Alanine Aminotransferase 28 U/L (6-35); Albumin Level 4.3 g/dL (3.5-5.1); Alkaline Phosphatase 57 U/L (38-126); Anion Gap 7 mmol/L (4-12); Aspartate Amino Transferase 40 U/L (14-36); Bilirubin,Total 0.4 mg/dL (0.2-1.3); Blood Urea Nitrogen 21 mg/dL (7-17); Calcium 10.0 mg/dL (8.4-10.2); Carbon Dioxide 30 mmol/L (22-30); Chloride 104 mmol/L (98-107); Estimated CRCL calculation 58 ml/min; Estimated Glomerular Filt Rate > 60; Glucose 155 mg/dL (65-110); Lipase 54 U/L (23-300); Potassium 4.0 mmol/L (3.4-5.0); Sodium 141 mmol/L (137-145); Total Protein 8.2 g/dL (6.3-8.2)
--- NOTE | 2024-12-22 07:22 | PC.NURSE ---
Report received from Payal BAILEY
[2024-12-22 07:53] VITALS: BP 131/59; PULSE 65; RESP 18; O2SAT 100
[2024-12-22 08:06] LABS: Add Urine Microscopic? YES; Appearance Urine Clear (Clear); Glucose Urine UA Negative (Negative); Leukocyte Esterase Ur Negative LEU/UL (Negative); Nitrate Urine Negative (Negative); Specific Grav Ur 1.015 (1.001-1.035)
[2024-12-22] MEDS: MORPHINE SULFATE (*CRX) 4 MG/ML INJ IV PUSH (08:40)
[2024-12-22 08:42] VITALS: BP 127/58; PULSE 61; RESP 20; TEMP 36.8
[2024-12-22 09:23] VITALS: BP 124/68; PULSE 62; RESP 20; TEMP 36.9; O2SAT 97
== END 2024-12-22 09:33 | disposition home or self-care (01) ==
PROVIDERS: Emergency Medicine; Emergency Provider Family Medicine; PCP Nurse Practitioner Family
DX: G43.919 Migraine, unspecified, intractable, without status migrainosus (principal); Z87.891 Personal history of nicotine dependence
CPT/HCPCS: 36415; 80053; 81001; 83690; 85025; 96361; 96374; 96375; 99284; J0780; J1200; J1885; J2270; J7030

== ENCOUNTER 2024-12-22 12:21 | Emergency (ER) | payer MEDICARE, OTHER, SELFPAY ==
--- OUTSIDE RECORDS SUMMARY | 2024-12-22 12:23 | XMS_ITS | Clinical Summary ---
Author Organization [facility] Address [address] [place] [address] Care Team Providers Care Heating Fixture Tender Name Role Phone Unavailable Primary Care Provider Unavailabl e Source Comments [facility],non-owned Affiliates and Associated Physician Practices is amultiple site organization consisting of ambulatory clinics and hospital sitesin [place], [place], [place] and [place]. This disclosure is being madepursuant to the Care Everywhere program and may not contain all information available regarding this patient. Last updated 18.[facility] Allergies Active Allergy Reactions Criticality Noted Date [...] patient's age to complete this topic Insurance [facility] Address: [facility] [id number] [place] [address]
--- OUTSIDE RECORDS SUMMARY | 2024-12-22 12:23 | XMS_ITS | Clinical Summary ---
Author Organization [facility] Address [address] [place] [address] Care Team Providers Care Dialysis Registered Nurse Name Role Phone Jacobo Shaikh DO Primary Care Provider Allergies Active Allergy Reactions Criticality Noted Date [...] on file Legal Sex Female 4:38 PM SWIMMING TEACHER Gender Identity Not on file Sexual Orientation Not on file Obstetrics History Last Filed Vital Signs Vital Sign Reading Time Taken Comments Blood Pressure 112/58 06/17/2022 8:48 PM SWIMMING TEACHER Pulse 76 06/17/2022 8:48 PM SWIMMING TEACHER Temperature 36.7 C (98 F) 06/17/2022 4:46 PM SWIMMING TEACHER Respiratory Rate 18 06/17/2022 8:48 PM SWIMMING TEACHER Oxygen Saturation 100% 06/17/2022 8:48 PM SWIMMING TEACHER Inhaled Oxygen Concentration - - Weight 60.3 kg (133 lb) 06/17/2022 4:46 PM SWIMMING TEACHER Height 167.6 cm (5' 6) 06/17/2022 4:46 PM SWIMMING TEACHER Body Mass Index 21.47 06/17/2022 4:46 PM SWIMMING TEACHER Plan of Treatment Health Maintenance Due Date [...] Insurance [employer] [place] Care Teams Dialysis Registered Nurse Relationship Specialty Start Date End Date Jacobo Shaikh DO PCP - General Internal Medicine 06/17/22
[2024-12-22 12:32] VITALS: BP 136/88; PULSE 68; RESP 16; TEMP 36.4; O2SAT 98
--- NOTE | 2024-12-22 13:43 | PC.NURSE ---
pt LWBS with her
--- OUTSIDE RECORDS SUMMARY | 2024-12-22 13:58 | XMS_ITS | Clinical Summary ---
Author Organization [facility] Address [address] [place] [address] Care Team Providers Care Call Taker Name Role Phone Unavailable Primary Care Provider Unavailabl e Source Comments [facility],non-owned Affiliates and Associated Physician Practices is amultiple site organization consisting of ambulatory clinics and hospital sitesin [place], [place], [place] and [place]. This disclosure is being madepursuant to the Care Everywhere program and may not contain all information available regarding this patient. Last updated 18.[facility] Allergies Active Allergy Reactions Criticality Noted Date [...] patient's age to complete this topic Insurance [facility]
--- OUTSIDE RECORDS SUMMARY | 2024-12-22 13:58 | XMS_ITS | Clinical Summary ---
Author Organization [facility] Address [address] [place] [address] Care Team Providers Care Cap And Stud Machine Operator Name Role Phone Jacobo Shaikh DO Primary Care Provider [phone] Allergies Active Allergy Reactions Criticality Noted Date [...] on file Legal Sex Female 4:38 PM WET END SUPERVISOR Gender Identity Not on file Sexual Orientation Not on file Obstetrics History Last Filed Vital Signs Vital Sign Reading Time Taken Comments Blood Pressure 112/58 06/17/2022 8:48 PM WET END SUPERVISOR Pulse 76 06/17/2022 8:48 PM WET END SUPERVISOR Temperature 36.7 C (98 F) 06/17/2022 4:46 PM WET END SUPERVISOR Respiratory Rate 18 06/17/2022 8:48 PM WET END SUPERVISOR Oxygen Saturation 100% 06/17/2022 8:48 PM WET END SUPERVISOR Inhaled Oxygen Concentration - - Weight 60.3 kg (133 lb) 06/17/2022 4:46 PM WET END SUPERVISOR Height 167.6 cm (5' 6) 06/17/2022 4:46 PM WET END SUPERVISOR Body Mass Index 21.47 06/17/2022 4:46 PM WET END SUPERVISOR Plan of Treatment Health Maintenance Due Date [...] Insurance [employer] [place] Care Teams Cap And Stud Machine Operator Relationship Specialty Start Date End Date Jacobo Shaikh DO PCP - General Internal Medicine 06/17/22
== END 2024-12-22 13:46 | disposition left against medical advice (07) ==
LOC: ANHED 13:44
PROVIDERS: PCP Nurse Practitioner Family
DX: G43.919 Migraine, unspecified, intractable, without status migrainosus (principal); Z87.891 Personal history of nicotine dependence
CPT/HCPCS: 99199

== ENCOUNTER 2025-02-07 17:39 | Emergency (ER) | payer MEDICARE, OTHER, SELFPAY ==
--- NOTE | 2025-02-07 17:42 | ED.NECK ---
HPI - Neck Pain/Injury General Chief Complaint: Neck Pain/Injury Stated Complaint: Can't turn head right for 3 days Time Seen by Provider: 02/07/25 17:40 Source: patient Mode of arrival: ambulatory Limitations: no limitations History of Present Illness HPI Narrative: Patient is a 64-year-old female who presents with right-sided muscular pain for 3 days. Reports it is persistent any tight, squeezing, pulling. Also had root canal on right side the same day of start of symptoms. Denies any fever, chills, nausea, vomiting, diarrhea, congestion, sore throat, cough. Related Data Home Medications ?Medication ?Instructions ?Recorded ?Confirmed ?Last Taken ?Type methotrexate (PF) 12.5 mg/0.25 mL 12.5 mg subcut WEEKLY 09/29/24 09/29/24 Unknown History subcutaneous auto-injector ixekizumab 80 mg/mL subcutaneous 80 mg subcut ONCE 02/07/25 Unknown History auto-injector (Taltz Autoinjector) Allergies Allergy/AdvReac Type Severity Reaction Status Date / Time codeine AdvReac Unknown Vomiting Verified 02/07/25 17:56 Review of Systems Review of Systems: All systems reviewed & are unremarkable except as noted in HPI and below Constitutional: Constitutional: Denies body ache(s), Denies chills, Denies fatigue, Denies fever(s), Denies headache(s), Denies malaise and Denies weakness Eyes: Eyes: Denies blurry vision, Denies irritation and Denies loss of vision ENT: Denies otalgia, Denies headache(s), Denies nasal discharge, Denies sinus pain and Denies sore throat Cardiovascular: Cardiovascular: Denies chest pain, Denies irregular heart rhythm and Denies dyspnea Respiratory: Respiratory: Denies dyspnea Gastrointestinal: Gastrointestinal: Denies abdominal pain, Denies melena, Denies hematochezia, Denies diarrhea, Denies nausea and Denies vomiting Musculoskeletal: Musculoskeletal: Denies back pain, Denies myalgias, Denies arthralgias and Reports neck pain Integumentary/Breasts: Skin/Breast: Denies pruritus and Denies rash Neurologic: Denies headache(s), Denies loss of vision and Denies weakness Psychiatric: Psychiatric: Reports no additional psychiatric complaints Endocrine: Endocrine: Denies fatigue PMFSH Past Medical History Medical History Trigeminal neuralgia of right side of face Muscle cramp Herpes HPV test positive Vaginal delivery x 2 Migraines Urinary urgency Dysuria Screening for breast cancer Postmenopausal Screening for lipid disorders Screening for cardiovascular condition Psoriatic arthritis Surgical History Surgical History Hx of unilateral salpingectomy [place] teeth removed History of bilateral tubal ligation Previous section Hx of cholecystectomy Family History Family History Mother Acute myocardial infarction Cancer Grandparent Family history of coronary artery disease Social History Social History Smoking packs per day: 1 Smoking cigarettes per day: 20.0 Years smoked: 7 Smoking pack-years: 7.00 Smoking status: Former smoker Second hand tobacco smoke exposure: Yes Alcohol intake: never Substance use: never Substance use type: does not use Do You Feel Safe in your Home?: Yes Lack of Transportation: No Lack of Food: Never True Current Housing: I Have Housing Concerned About Future Housing: No Difficulty Paying Gas/Electric Bills: No Difficulty Paying for Meds: No Currently Unemployed: No Education: Associate Degree Difficulty w/ Childcare or Family Care: No Living arrangements: with family Occupation/Education: occupation Gender identity (if verbalized by the patient): Female Sexual Orientation (if Verbalized by the Patient): Straight or Heterosexual Spiritual care concerns: No Agree to blood products: Yes Comments At time of signature, agree with nursing past medical, surgical, social and family history. There is no relevant family history pertinent to the presenting complaint. Exam Const: General: cooperative, healthy appearing, comfortable, no acute distress and well nourished Nutritional Appearance: well nourished Orientation/consciousness: patient oriented x3 Limitations: no limitations HENMT: Head: normal to inspection, normocephalic and atraumatic Ears: hearing grossly normal bilaterally and external ears normal Face/Nose/Sinus: Normal external nose present, normal facial exam and face symmetric Face and sinus: normal facial exam and face symmetric Mouth: Yes lip normal Eyes: General: appearance normal, both eyes and all related structures Alignment and Position: alignment normal and position normal Periorbital: periorbital findings normal Eyelids: eyelids normal Pupils: Equal, round and reactive pupils present EOM: EOMs intact bilaterally Neck: Neck: normal visual inspection, full ROM and supple Chest: Chest palpation & inspection: normal inspection of the chest Resp: Effort & Inspection: normal respiratory effort and able to speak in complete sentences Auscultation: clear to auscultation bilaterally Cardio: Rate: regular rate Rhythm: regular rhythm Heart sounds: S1 normal heart sound present and S2 normal heart sound present GI: Inspection: normal to inspection Back/Spine/Pelvis: Cervical Spine: normal cervical lordosis, cervical muscular tenderness (Right side), pain with cervical ROM (Turning to the right), No Cervical spine tenderness and No step off deformity Skin: General skin exam: normal color and no rashes or lesions noted Neuro: General: patient oriented x3 and moves all extremities Cranial nerves: Yes Equal, round and reactive pupils present Speech: normal speech Gait exam (Neuro): Normal gait present Extrem: General: normal to inspection, full ROM and no edema Right upper extremity: normal to inspection, full ROM, normal capillary refill and shoulder/upper arm normal to inspection, axillary nerve sensory function normal and normal ROM; no tenderness and no swelling Psych: Appearance: grossly normal and well kempt Mental Status: mental status grossly normal Speech and movement: Normal speech and movement present Affect: normal affect Attitude: cooperative Thought process: Normal thought process present Course Course Emergency Course: Patient is aware of diagnosis, understands and agrees to treatment plan. Anticipatory guidance given. Patient agrees to follow-up as directed and is aware of reasons to seek care at the emergency department. Portions of this record may have been created with voice recognition software Level of Care: Express Care Visit Vital Signs Vital signs: Vital Signs Temperature 36.7 C 02/07/25 17:53 Pulse Rate 54 L 02/07/25 17:53 Respiratory Rate 16 02/07/25 17:53 Blood Pressure 146/61 H 02/07/25 17:53 Pulse Oximetry 100 02/07/25 17:53 Oxygen Delivery Room Air 02/07/25 17:53 Temperature 36.7 C 02/07/25 17:53 Pulse Rate 54 L 02/07/25 17:53 Respiratory Rate 16 02/07/25 17:53 Blood Pressure 146/61 H 02/07/25 17:53 Pulse Oximetry 100 02/07/25 17:53 Oxygen Delivery Room Air 02/07/25 17:53 Reviewed MDM - Neck Pain/Injury MDM Narrative Medical decision making narrative: No surface trauma, open wounds, trachea midline, nontender over larynx. No bony tenderness, step-off or deformity to firm palpation at the posterior midline. FROM with limitation or pain to the right; normal flexion, extension. soft tissue or muscle tenderness on right posterior neck. Pain limited to trapezius muscle. There is no pain radiating down right arm or numbness, tingling or weakness. Patient has been using ice and heat was mild relief. Will prescribe muscle relaxers and steroids. Patient is to follow-up with PCP for physical therapy if failed treatment. Pt well hydrated appearing, in no respiratory distress, hemodynamically stable. Recommend supportive care. The patient is stable at time of discharge the clinical impression was discussed and the patient was given the opportunity to ask questions, which were addressed as completely as possible given the information available at present. Anticipatory guidance and return to care precautions were discussed and the importance of primary care follow-up was stressed and encouraged. The patient voiced understanding of the plan, indications to return, and the need for follow-up. Exam findings show no acute concerns or changes Patient is appropriate for outpatient treatment and follow-up. Differential Diagnosis Differential diagnosis: Likely cervical radiculopathy, torticollis and strain of neck muscle Medical Records Attestation: I reviewed the patient's medical records. Discharge Plan Discharge Clinical Impression: Strain of neck muscle Patient Disposition: Home Condition: Stable Instructions: Cervical Strain (ED) Additional Instructions: Take steroids in the morning with food. Use muscle relaxers as needed. They may make you sleepy. Avoid activities that cause pain until the pain subsides. Ice to the area 20-30 minutes 4-6 times a day For pain, you may take: Tylenol 650-1000mg by mouth every 4-6 hours. Do not exceed 4000mg in 24 hours. Follow up with your primary care provider if the condition is not improving within 1 week. If the condition worsens with numbness, tingling, decrease sensation with weakness seek treatment in the emergency room immediately. Patient Language: Slovenian Prescriptions: New prednisone 20 mg tablet 40 mg PO DAILY 5 Days Qty: 10 0RF baclofen 10 mg tablet 10 mg PO TID 5 Days Qty: 15 0RF No Action Taltz Autoinjector 80 mg/mL auto-injector 80 mg subcut ONCE methotrexate (PF) 12.5 mg/0.25 mL auto-injector 12.5 mg subcut WEEKLY rizatriptan [Maxalt-PAPER INSPECTOR] 10 mg tablet,disintegrating See Rx Instructions PO .COMPLEX Qty: 14 6RF Rx Instructions: take 1 tab at onset of headache; if no relief may repeat 1 tab after at least 2 hrs; max = 3 tabs/24 hr PO gabapentin 300 mg capsule 300 mg PO TID Qty: 90 2RF ondansetron 4 mg tablet,disintegrating 4 mg PO Q8H PRN (Reason: nausea and vomiting) Qty: 14 2RF sertraline [Zoloft] 50 mg tablet 50 mg PO DAILY Qty: 90 2RF naproxen 500 mg tablet 500 mg PO BID PRN (Reason: pain) Qty: 60 2RF Follow-up/Referrals: Tashi Anna MD [Primary Care Provider, Family Practice] - 3 Days Stand Alone Forms: Work/School Release IP Time of Disposition: 18:19
[2025-02-07 17:53] VITALS: BP 146/61; PULSE 54; RESP 16; TEMP 36.7; O2SAT 100
== END 2025-02-07 18:24 | disposition home or self-care (01) ==
PROVIDERS: Emergency Provider Nurse Practitioner Family; PCP Family Medicine
DX: S16.1XXA Strain of muscle, fascia and tendon at neck level, initial encounter (principal); X58.XXXA Exposure to other specified factors, initial encounter; L40.50 Arthropathic psoriasis, unspecified; Z87.891 Personal history of nicotine dependence
CPT/HCPCS: 99213; G0463